=== PATIENT | female | born 1950 | race Caucasian/White ===

== ENCOUNTER 2023-09-20 02:40 | Inpatient (IN) | payer OTHER, SELFPAY ==
[2023-09-19 19:28] VITALS: BP 145/49
[2023-09-19 21:41] VITALS: BMI 38.8
--- NOTE | 2023-09-19 22:22 | ED.GENMED ---
History of Present Illness
General
Chief Complaint: Swelling
Source: patient, records and previous radiology exam
Exam Limitations: none
Time Seen by Provider: 09/19/23 21:39
Nursing documentation reviewed up to this point in time: agreed with
Travel History
Have you had any contact with someone who has COVID-19?: No
Do you have any symptoms of coronavirus? Fever > 100 degrees, chills, cough, shortness of breath, sore throat, loss of taste or smell, muscle aches, or headache?: No
History of Present Illness
History of Present Illness:
72-year-old female history of CAD, restless leg mental health issues neuropathy presents with subacute onset of pain and swelling of her right greater than left leg states she has been compliant with her dietary restrictions, although she was told
her weight is up 10 pounds today, no fevers does feel short of breath, no chest pains, has had ultrasounds of the leg previously, she is not anticoagulated
Past History
Past History
ED Past Medical History: CAD, COPD and HTN
ED Past Surgical History: None, Gynecological, Orthopedic and Other (Thyroid)
Social History
Tobacco: Vaping
Alcohol: None
Drug: None
Personal:
Living: alone
Employment: Retired
Review of Systems
Review of Systems
All Other Systems: Not applicable
Constitutional: Reports weight gain and fatigue; Denies fever
Respiratory: Reports trouble breathing; Denies cough
Cardiac: Reports no symptoms
ABD/GI: Reports no symptoms
: Reports no symptoms
Musculoskeletal: Reports joint pain and muscle stiffness
Neurological: Reports no symptoms
Endocrine: Reports no symptoms
Phy Exam
Physical Exam
Physical Exam:
Physical Exam
General: Chronically ill adult female no acute distress
Neck: No jaundice
Heart: Regular
Lungs: No wheeze
Abdomen: Nontender
Neuro: alert and oriented. no focal neurological deficits
Skin: no rash
Psychiatric: well kept. interactive
Extremities: Right greater than left lower extremity swelling with redness stasis changes mild warm
Scores
Heart Failure Risk
Heart Failure Risk Score: Not Applicable
Course
Orders/Labs/Results
Orders:
Orders
09/19/23 22:17
US Periph Venous LOWER Ext RT Urgent
Comment:
Reason For Exam: swelling
09/19/23 22:30
Complete Blood Count/With Diff Urgent
Comprehensive Metabolic Panel Urgent
NT-proBNP Urgent
Comment: ADD ON
Troponin I Urgent
09/20/23 00:01
CR Chest - 2 Views Urgent
Reason For Exam: sob
09/20/23 01:24
Case Management Consult ONCE
Case Management Consult: Discharge Planning
Furosemide [Lasix] 60 mg IV NOW STA
09/20/23 02:28
Furosemide [Lasix] 40 mg IV NOW STA
09/20/23 06:00
Physical Therapy Consult [Pt Eval And Treat] IN AM
Activity Level: Out of Bed-Early Mobility
Abnormal Lab Results
09/19/23
22:30
RBC 3.54 L 10^6/uL
(4.20-5.40)
Hgb 11.1 L g/dL
(12.0-16.0)
Hct 33.2 L %
(37.0-47.0)
MCH 31.4 H pg
(27.0-31.0)
MPV 10.6 H fL
(7.4-10.4)
Abs Immat Gran (auto) 0.1 H 10^3/uL
(0-0.05)
Immature Gran % 1.0 H %
(0-0.5)
Carbon Dioxide 31 H mmol/L
(22-30)
BUN 18 H mg/dl
(7-17)
Creatinine 1.3 H mg/dL
(0.6-1.0)
AST 37 H U/L
(14-36)
09/19/23 22:30
09/19/23 22:30
Vital Signs
Initial and Last Documented VS:
Initial Vital Signs
Temp Pulse Resp BP Pulse Ox
98.4 F 63 18 145/49 95
09/19/23 19:28 09/19/23 19:28 09/19/23 19:28 09/19/23 19:28 09/19/23 19:28
Last Documented Vital Signs
Temp Pulse Resp BP Pulse Ox
98.4 F 60 18 119/48 99
09/19/23 19:28 09/20/23 02:30 09/20/23 02:15 09/20/23 02:30 09/20/23 02:00
MDM/Problems Addressed
Differential Diagnosis Includes:
Heart failure venous stasis changes, cellulitis DVT neuropathy
MDM/Problems Addressed:
Leg pain shortness of
Chronic conditions affecting care:
Neuropathy heart failure CAD COPD
Chronic conditions affecting care: Psychiatric illness
Acute Exacerbation and/or Progression of Chronic Illness: CAD and Psychiatric illness
*Radiology
Radiology exam reviewed: preliminary read by ED provider
*Pulse Oximetry
Patient hypoxic: no
*EKG
Interpreted by ED Provider?: Yes
Interpretation: abnormal
Comparison EKG: no comparison EKG present
Heart Rate: 78
Rate: normal
Rhythm: ventricular paced
Ischemia: non-specific ST changes
*Algebraist Interpretation
Rate: Algebraist- N/A
*Critical Care Note
Total Time (30-74mins, 75-104mins- exclusive of procedures): Not Applicable
Data Reviewed
Review of Other/Old Records Reveals: Labs, Records and Radiology Studies
Source: patient
Update Note
Update Note:
11:30 PM reviewed operations and maintenance technician negative for DVT
12:35 aM chest x-ray noted no obvious heart failure
1:15 AM patient feeling okay, she is concerned about going home states she cannot walk really get out of bed to feel short of breath
Will give diuretic. Case management PT hospitalist notified
ED Attending Note
-
Portions of this chart may have been created with voice recognition software.� Occasional wrong word or��sound alike� substitutions may have occurred due to the inherent limitations of voice recognition software.
Discharge Plan
Departure
Patient Disposition: Admit
Date of Disposition: 09/20/23
Time of Disposition: 01:35
Admit to: Telemetry
Presentation/result/management discussed w/ accepting MD/DO: Hospitalist
Patient with high blood pressure during this ER visit?: Yes
Condition: Fair
Covid-19: Not Applicable
Discharge Problem:
Obesity (BMI 30-39.9), Hypertensive heart and chronic kidney disease with heart failure and stage 1 through stage 4 chronic kidney disease, or unspecified chronic kidney disease, Arthritis, CHF exacerbation, HTN (hypertension), HLD (hyperlipidemia)
Prescriptions:
No Action
escitalopram oxalate 10 MG tablet
10 mg PO DAILY
magnesium oxide 400 MG tablet
400 mg PO HS
acetaminophen 500 mg Tablet
1,000 mg PO BIDPRN PRN (Reason: MILD PAIN)
gabapentin 100 mg capsule
300 mg PO HS
mirtazapine 7.5 mg tablet
7.5 mg PO HS
aripiprazole 2 mg tablet
2 mg PO HS
midodrine 5 MG tablet
5 mg PO BID
ropinirole 0.5 mg Tablet
0.5 mg PO HS
aspirin 81 mg Tablet,Chewable
81 mg PO DAILY
rosuvastatin [Crestor] 20 mg Tablet
20 mg PO HS
melatonin 1 mg Tablet
14 mg PO HS
solifenacin [Vesicare] 5 mg Tablet
5 mg PO DAILY
turmeric 400 mg Capsule
400 mg PO DAILY
calcium carbonate [Oyster Shell Calcium 500] 500 mg calcium (1,250 mg) Tablet
500 mg PO DAILY Qty: 30 0RF
nicotine 14 mg/24 hr Patch 24 Hour
14 mg transdermal DAILY Qty: 28 0RF
potassium chloride [Klor-Con] 20 mEq Packet
40 meq PO DAILY Qty: 30 0RF
ferrous sulfate [FeroSul] 325 mg (65 mg iron) Tablet
325 mg PO BID Qty: 60 0RF
furosemide 40 MG tablet
80 mg PO DAILY Qty: 30 0RF
Referrals:
Roverto Cruz MD [Family Provider] -
Interventions
Interventions:
*Risk Screen - Suicide Last Done: 09/19/23 19:28
*General Assessment Last Done: 09/19/23 19:28
*Neglect/Abuse Screening Last Done: 09/19/23 19:28
ED- Fall Risk Assessment Last Done: 09/19/23 23:03
*ED COVID-19 Vaccine History Last Done: 09/19/23 21:42
ED- Cardiac Assessment Last Done: 09/19/23 23:02
ED- Pulmonary Assessment Last Done: 09/19/23 23:02
ED-Skin Assessment Last Done: 09/19/23 23:02
Discharge Date and Time
Print Language: TRISTANIAN
[2023-09-19 22:45] LABS: % Basophils 0.6 % (0-2); % Eosinophils 4.6 % (0-6); % Lymphocytes 27.2 % (20.5-51.1); % Neutrophils 58.6 % (42.2-75.2); Absolute Eosinophils 0.3 10^3/uL (0-0.7); Absolute Immature Granulocytes 0.1 10^3/uL (0-0.05); Absolute Lymphocytes 1.9 10^3/uL (1.2-3.4); Absolute Monocytes 0.6 10^3/uL (0.1-0.6); Hematocrit 33.2 % (37.0-47.0); Hemoglobin 11.1 g/dL (12.0-16.0); Mean Corp Hgb Conc. 33.4 g/dL (33.0-37.0); Mean Corpuscular Hgb 31.4 pg (27.0-31.0); Mean Corpuscular Volume 93.8 fL (81.0-99.0); Mean Platelet Volume 10.6 fL (7.4-10.4); Nucleated Red Blood Cells % 0 %; Platelet Count 255 10^3/uL (130-400); Red Blood Cell Count 3.54 10^6/uL (4.20-5.40); Red Cell Dist. Width 13.1 % (11.5-14.5); White Blood Cell Count 6.9 10^3/uL (4.8-10.8)
[2023-09-19 23:06] LABS: NT-proBNP 129 pg/ml; Troponin I < 0.012 ng/ml
[2023-09-19 23:07] LABS: ALT (SGPT) 23 U/L (0-35); AST (SGOT) 37 U/L (14-36); Albumin 4.1 g/dl (3.5-5.0); Alkaline Phosphatase 105 U/L (38-126); Blood Urea Nitrogen 18 mg/dl (7-17); Calcium 9.3 mg/dl (8.4-10.2); Carbon Dioxide 31 mmol/L (22-30); Chloride 99 mmol/L (98-107); Estimated Creatinine Clearance 52 ml/min; Glucose 92 mg/dl (70-99); Potassium 3.5 mmol/L (3.5-5.1); Sodium 136 mmol/L (135-145); Total Bilirubin 0.6 mg/dl (0.2-1.3); Total Protein 6.8 g/dl (6.3-8.2); eGFR 43.69
[2023-09-19 23:37] VITALS: BP 126/45
[2023-09-20] VITALS (16 sets, daily range): BP systolic 98–175; BP diastolic 43–86; BMI 37.0; BMI 35.9
--- NOTE | 2023-09-20 02:24 | HPS.HSE ---
Family Physician
-
Family Physician: Roverto Cruz
Chief Complaint
-
Rt leg pain
History of Present Illness
72F HX chr HFpEF , PPM implant, CAD, CKD3 , Nuropathy restless leg, mental health issues
pw subacute onset of pain and swelling of her right greater than left leg
Weight is up about 9 kg compare to 2022
ROS
+ short of breath
No chest pains
Medical History
Past Medical History
Past Medical History: Reports Other
Additional Past Medical History:
chronic HFpEF
s/p Medtronic DC PPM for syncope and 2nd degree AV block, type I 09/10/21
Orthostasis on chronic midodrine
CAD s/p NSTEMI with peak Troponin 4.9 and s/p 4 mm Xience to prox RCA 02/11/21
History of recovered cardiomyopathy in setting of above
CKD 3
HTN
Hyperlipidemia
ETOH use disorder, recovered, but still drinking 2-3 times a week
Former smoker, 1-2 ppd from age 15 to 65
Medical marijuana
COPD
Depression with anxiety disorder
Neuropathy
Morbid obesity, BMI 39
Arthritis
Past Surgical History: Reports Gynocological and Orthopedic
Social History
Tobacco: Vaping
Alcohol: None
Drug: None
Personal:
Family History
Family History: Not pertinent
Allergies / Home Medications
Allergies reflects when Allergies were last updated in [employer].
Home Medications with original date entered in [employer]
Allergy/Medication List:
Allergies
Allergy/AdvReac Type Severity Reaction Status Date / Time
No Known Allergies Allergy Verified 09/19/23 19:27
Home Medications
escitalopram oxalate 10 mg tablet 10 mg PO DAILY Mental Health/Anxiety 02/10/21
magnesium oxide 400 mg PO HS Supplement 09/07/21
acetaminophen 500 mg tablet 1,000 mg PO BIDPRN PRN MILD PAIN 01/15/22
aripiprazole 2 mg tablet 2 mg PO HS Mental Health/Anxiety 01/15/22
gabapentin 100 mg capsule 300 mg PO HS Neurological Condition 01/15/22
midodrine 5 mg tablet 5 mg PO BID Blood pressure 01/15/22
mirtazapine 7.5 mg tablet 7.5 mg PO HS Depression 01/15/22
aspirin 81 mg chewable tablet 81 mg PO DAILY Blood clot prevention/tx 10/21/22
melatonin 1 mg tablet 14 mg PO HS Sleep 10/21/22
ropinirole 0.5 mg tablet 0.5 mg PO HS RESTLESS LEG 10/21/22
rosuvastatin 20 mg tablet (Crestor) 20 mg PO HS High cholesterol 10/21/22
solifenacin 5 mg tablet (Vesicare) 5 mg PO DAILY Urinary issue 10/21/22
turmeric 400 mg capsule 400 mg PO DAILY Supplement 10/21/22
calcium carbonate (Oyster Shell Calcium 500) 500 mg PO DAILY #30 tabs 10/23/22
ferrous sulfate 325 mg (65 mg iron) tablet (FeroSul) 325 mg PO BID #60 tabs 10/23/22
furosemide 40 mg tablet 80 mg (2 x 40 mg) PO DAILY Fluid retention/Swelling #30 tabs 10/23/22
nicotine 14 mg/24 hr daily transdermal patch 14 mg transdermal DAILY #28 ea 10/23/22
potassium chloride 20 mEq oral packet (Klor-Con) 40 meq PO DAILY #30 ea 10/23/22
Review of Systems
-
Constitutional: Reports No Symptoms
EENT: Reports No Symptoms
Respiratory: Reports No Symptoms
Cardiac: Reports No Symptoms
Abdomen/GI: Reports No Symptoms
: Reports No Symptoms
Musculoskeletal: Reports See HPI
Skin: Reports No Symptoms
Neurological: Reports No Symptoms
Endocrine: Reports No Symptoms
Hematologic/Lymphatic: Reports No Symptoms
Psych: Reports No Symptoms
Physical Exam
Vital Signs
Vital Signs
Temp Pulse Resp BP Pulse Ox
98.4 F 62 18 119/48 99
09/19/23 19:28 09/20/23 02:15 09/20/23 02:15 09/20/23 02:01 09/20/23 02:00
Physical Exam
General: No Apparent Distress
HEENT: NormoCephalic and Anicteric
Respiratory: Clear; No Wheezes, Rales or Rhonchi
Cardiac: S1/S2 and Regular Rhythm
Breast: Deferred by me
GI: Soft, Non Tender, Non Distended and Normal Bowel Sounds
Rectal: Deferred by Provider
Genito-urinary: Deferred by me
Musculoskeletal: No Edema
Skin: Other (Right greater than left lower extremity swelling with redness stasis changes mild warm)
Neuro: AO x 3 and Nonfocal/grossly intact
Psych: Calm
Laboratory Results
-
09/19/23 22:30
09/19/23 22:30
Laboratory Results
Total Bilirubin 0.6 mg/dl (0.2-1.3) 09/19/23 22:30
AST 37 U/L (14-36) H 09/19/23 22:30
ALT 23 U/L (0-35) 09/19/23 22:30
Alkaline Phosphatase 105 U/L (38-126) 09/19/23 22:30
Troponin I < 0.012 ng/ml 09/19/23 22:30
Data Reviewed
-
Ultrasound: Report Reviewed by me
Lab Data: Labs Reviewed by me
Old Records: Reviewed
Impression/Plan
-
Reviewed VS: unremarkable
Wt 106.5 kg ( 10/23/22) ---> 115.6 kg ( 09/19/23) +9 kg
Data
Hgb 11.1
CO2 31 - baseline 33-34
Cr 1.3 - baseline 1.1 - 1.3
e GFR 43
NEG TPNI
pro BNP 129
Rt MADDY US: NEG
CXR my view: PM implant , no CHF
ECHO 08/10/22: EF 63%, mild cLVH, mild MR
Last hospitalist admission: 10/21/22- 10/23/22 DX; Acute on chronic heart failure with preserved ejection fraction
ASSESSMENT & PLAN
Pending Rx reconciliation
Rt Leg cellulitis
-IV ancef
Volume overload: gained 9 kg since october ( Wt 106.5 kg ( 10/23/22) ---> 115.6 kg ( 09/19/23)
HX chr HFpEF
HX intolerance beta blockade with hypotension.
EF also preserved so no indication for ACEI/ARB/SGLT2-I
- Insignificant pBNP, NEG CXR
- hold off IV Diuresis till eval by Card
- DCA card consult
HX CAD s/p NV - No chest pain. Normal troponin. No evidence that acute ischemia is contributing
- cont ASA , statin
Chr Hypotension/orthostasis - Chronic.
S/p PPM and on midodrine
- cont midodrine 5 bid
DVT Px: LMWH
Code: Full code
[2023-09-20] MEDS: LASIX 40 MG IV ×2 (02:30→17:06)
--- NOTE | 2023-09-20 03:11 | EDRN ---
Called pharmacy for [phone] anc
[2023-09-20] MEDS: ANCEF 5 IV ×3 (03:49→21:14)
[2023-09-20 05:51] LABS: Blood Urea Nitrogen 20 mg/dl (7-17); Calcium 9.1 mg/dl (8.4-10.2); Carbon Dioxide 28 mmol/L (22-30); Chloride 100 mmol/L (98-107); Estimated Creatinine Clearance 57 ml/min; Glucose 105 mg/dl (70-99); Potassium 3.5 mmol/L (3.5-5.1); Sodium 137 mmol/L (135-145); eGFR 48.09
--- NOTE | 2023-09-20 07:38 | CON.CAR ---
Addendum entered and electronically signed by Chauncey Sylvester DO 09/20/23 11:39:
I saw and examined the patient.
The Supervisor Laundry's note was reviewed and I agree with the note.
Comment:
Plan:
Continue with IV lasix for now 40 mg BID and then likely transition to oral lasix next 24 hrs.
Cont tx for cellulitis as per primary service. LE u/s neg for DVT
She does not appear to be significantly volume overloaded. ProBNP 129. CXR without evidence of acute heart failure.
Recent echo reviewed: Echo 07/2022 with preserved EF and mild MR.
Trop negative.
BP stable with hx orthostasis and maintained on midodrine 5mg BID.
Continue aspirin and crestor w/ h/o CAD and prior PCI.
Original Note:
Consultation
Consultation Request
Date/Time Consultation Requested: 09/20/2023
Date/Time Consultation Performed: 09/20/2023
Requesting Provider: Dr. Sierra
Performing Provider: Dr. Degroot
Reason for Consultation: ?CHF
Medical History
-
History of Present Illness:
HPI: Bekah is a 72 year old female with PMH of chronic HFpEF, PPM, orthostasis, CAD, recovered CM, CKD, HTN, HLD, COPD, and depression. [facility] for evaluation of worsening LE edema. She states over the past few days she has had
progressively worsening LE edema R>L. This edema has made it hard for her to ambulate and as it continued to worsen, she came to ER for evaluation. Also noted pain and erythema of her legs which has been associated with the edema. She states she is
chronically SOB and attributes this to deconditioning, however has had a light progression in her SOB as well over the past few days. She does not weigh herself on a daily basis, however has noted weight gain over the past year and is now around
245lbs at home. On arrival to ER, she was found to have evidence of cellulitis and was started on abx. LE US was negative for DVT. Given concern for heart failure with weight gain, SOB, and edema, she was given a dose of IV lasix in the ER and noted
good urine output with this. This AM, she is resting comfortably in bed. She has no SOB at rest and is not hypoxic.
PMH:
Chronic HFpEF
s/p Medtronic DC PPM for syncope and 2nd degree AV block, type I 09/10/21
Orthostasis on chronic midodrine
CAD
s/p NSTEMI w/ 4 mm Xience to prox RCA 02/11/21
h/o recovered cardiomyopathy in setting of above
CKD 3
HTN
Hyperlipidemia
ETOH use disorder, recovered
Former smoker, 1-2 ppd from age 15 to 65
Medical marijuana
COPD
Depression with anxiety disorder
Neuropathy
Morbid obesity, BMI 39
Arthritis
Past Medical History
Past Medical History: Other (In HPI)
Past Surgical History: Cardiac (PCI of RCA 01/2021, PPM 08/2021) and Other (b/l TKA, left foot bunionectomy, back surgery)
Social History
Tobacco: Former Smoker (current e-cigarette use)
Alcohol: Occasional
Personal:
Living: Alone
Family History
Family History: Cancer
Allergies / Home Medications
Allergy/AdvReac Type Severity Reaction Status Date / Time
No Known Allergies Allergy Verified 09/19/23 19:27
�Medication �Instructions �Recorded �Confirmed �Type
escitalopram oxalate 10 mg tablet 10 mg PO DAILY Mental 02/10/21 09/20/23 History
Health/Anxiety
magnesium oxide 400 mg PO HS Supplement 09/07/21 09/20/23 History
acetaminophen 500 mg tablet 1,000 mg PO BIDPRN PRN MILD PAIN 01/15/22 09/20/23 History
aripiprazole 2 mg tablet 2 mg PO HS Mental Health/Anxiety 01/15/22 09/20/23 History
midodrine 5 mg tablet 5 mg PO BID Blood pressure 01/15/22 09/20/23 History
mirtazapine 7.5 mg tablet 7.5 mg PO HS Depression 01/15/22 09/20/23 History
aspirin 81 mg chewable tablet 81 mg PO DAILY Blood clot 10/21/22 09/20/23 History
prevention/tx
melatonin 1 mg tablet 14 mg PO HS Sleep 10/21/22 09/20/23 History
ropinirole 0.5 mg tablet 0.5 mg PO HS RESTLESS LEG 10/21/22 09/20/23 History
rosuvastatin 20 mg tablet (Crestor) 20 mg PO HS High cholesterol 10/21/22 09/20/23 History
solifenacin 5 mg tablet (Vesicare) 5 mg PO DAILY Urinary issue 10/21/22 09/20/23 History
turmeric 400 mg capsule 400 mg PO DAILY Supplement 10/21/22 09/20/23 History
calcium carbonate (Oyster Shell 500 mg PO DAILY #30 tabs 10/23/22 09/20/23 Rx
Calcium 500)
nicotine 14 mg/24 hr daily 14 mg transdermal DAILY #28 ea 10/23/22 09/20/23 Rx
transdermal patch
potassium chloride 20 mEq oral 40 meq PO DAILY #30 ea 10/23/22 09/20/23 Rx
packet (Klor-Con)
furosemide 40 mg tablet 40 mg PO BID Fluid 09/20/23 09/20/23 History
retention/Swelling
Review of Systems
-
History Source: Patient
All other systems: Negative unless noted
Physical Exam
Vital Signs
Temp Pulse Resp BP Pulse Ox
98.4 F 60 16 139/63 97
09/19/23 19:28 09/20/23 04:00 09/20/23 04:00 09/20/23 04:00 09/20/23 03:00
Lab Results
09/19/23 22:30
09/20/23 05:30
Troponin I < 0.012 ng/ml 09/19/23 22:30
Gtt-R-Vhzdvljcute Pept 129 pg/ml 09/19/23 22:30
Kss-H-Ehfidqhvtcl Pept Cancelled 09/19/23 22:30
Physical Exam
General: Well Developed, Well Nourished and No Apparent Distress
HEENT: Normocephalic, Anicteric and Moist Mucous Membranes
Respiratory: Clear and Non Labored Respirations
Cardiac: S1/S2 and Regular Rhythm
Musculoskeletal: No Clubbing, No Cyanosis and Edema
Skin: Warm and Dry
Neuro: AO x 3 and Nonfocal/Grossly Intact
Psych: Calm
Impression / Plan
-
PCP: Dr. Cruz
Smoke Tester: Dr. Sylvester
Impression:
Presented with LE edema
Cellulitis
Chronic HFpEF
s/p Medtronic DC PPM for syncope and 2nd degree AV block, type I 09/10/21
Orthostasis on chronic midodrine
CAD
s/p NSTEMI w/ 4 mm Xience to prox RCA 02/11/21
h/o recovered cardiomyopathy in setting of above
CKD 3
HTN
Hyperlipidemia
ETOH use disorder, recovered, but still drinking 2-3 times a week
Former smoker, 1-2 ppd from age 15 to 65
Medical marijuana
COPD
Depression with anxiety disorder
Neuropathy
Morbid obesity, BMI 39
Arthritis
Echo 02/12/21: EF 40-45% with distal septum, lateral, inferior and anterior akinesis, mild MR
Echo 06/24/21: EF 60-65%, mild MR, mild TR
Echo 08/10/22: EF 63%, mild cLVH, mild MR
Plan:
-Presented with LE edema. Found to have cellulitis. Continue abx per primary service. LE US negative for DVT
-Concern for acute heart failure with weight gain, edema, and chronic SOB. s/p IV lasix 40mg x1 in ER.
-Good urine output, would continue IV lasix 40mg BID for now. Likely can transition to PO in the next 24 hours. Does not appear significantly volume overloaded.
-Creat stable at 1.2. Recheck weight this AM. ProBNP 129. CXR without evidence of acute heart failure.
-Echo 07/2022 with preserved EF and mild MR.
-BP stable. h/o orthostasis and maintained on midodrine 5mg BID.
-Troponin negative x 1. No chest pain.
-Continue aspirin and crestor w/ h/o CAD and prior PCI.
-K 3.5. Replete.
HPI: Bekah is a 72 year old female with PMH of chronic HFpEF, PPM, orthostasis, CAD, recovered CM, CKD, HTN, HLD, COPD, and depression. Presented to [facility] for evaluation of worsening LE edema. She states over the past few days she has had
progressively worsening LE edema R>L. This edema has made it hard for her to ambulate and as it continued to worsen, she came to ER for evaluation. Also noted pain and erythema of her legs which has been associated with the edema. She states she is
chronically SOB and attributes this to deconditioning, however has had a light progression in her SOB as well over the past few days. She does not weigh herself on a daily basis, however has noted weight gain over the past year and is now around
245lbs at home. On arrival to ER, she was found to have evidence of cellulitis and was started on abx. LE US was negative for DVT. Given concern for heart failure with weight gain, SOB, and edema, she was given a dose of IV lasix in the ER and noted
good urine output with this. This AM, she is resting comfortably in bed. She has no SOB at rest and is not hypoxic.
Data Reviewed
-
Radiology: Report Reviewed by me
Labs: Labs Reviewed by me
Old Records: Reviewed
[2023-09-20] MEDS: LASIX 80 MG PO (08:28)
[2023-09-20] MEDS: ProAmatine PO ×2 (08:28→08:57)
[2023-09-20] MEDS: LOW STRENGTH ASPIRIN 81 MG PO (08:28)
[2023-09-20] MEDS: KCL 40 MEQ PO (09:18)
[2023-09-20] MEDS: TYLENOL 1000 MG PO (11:37)
--- NOTE | 2023-09-20 12:11 | W.PN.HOSP.TC ---
Addendum entered and electronically signed by Christophe Cook MD 09/20/23 20:48:
Attending Addendum-
I saw and evaluated the patient. I reviewed the resident�s note and agree with findings and plan as documented in the resident�s note. Patient feels improved, less swelling in lower extremities. denies SOB/CP/fevers/chills Full 12 point ROS reviewed
and negative except as documented Exam: GEN NAD heart SM @ RUSB lungs clear abd soft LE- RLE red warm 12+ pitting edema LLE 1+ pitting edema Plan:
# RLE Cellulitis- cont ancef, check labs in am
# AE HFpEF- cards on board, cont IV lasix dry weight @ 144 per patient, fluid restrict strict I and O cont to monitor repeat BMP in am
# EToH Abuse- start MSAS protocol, monitor closely start folic acid thiamine and MVI
# Orthostatic Hypotension- cont meds
# HTN- cont meds
# Tob abuse- uses vapes- start maria isabel patch
# Mood D/O- restart meds
# Peripheral Neuropathy- cont meds
Time spent coordinating care, review of plan of care with resident, review of records, med rec, consults, notes, labs, rads, d/w nursing � 50 mins
Original Note:
Today's Communication/Plan
-
IV Lasix
IV antibiotics
Daily weights, fluid restrict, I/O
Assessment / Plan
Assessment / Plan
Assessment and plan
Right lower leg cellulitis
Continue IV cefazolin
CBC in a.m.
Monitor WBC and temperature curve
Heart failure with preserved ejection fraction
Echo 08/10/22: EF 63%, mild cLVH, mild MR
On IV Lasix twice daily, cardiology following. Likely to transition to PO in next 24 hours.
Creatinine 1.2 improving.
Daily weight
Fluid restrict
Monitor input and output
BMP in a.m.
Current tobacco user
Started on nicotine patch 21 mg
History of alcohol use disorder, continues to consume alcohol
On MSAS protocol
Orthostatic hypotension
Hold midodrine for now
Monitor blood pressure
DVT prophylaxis-Lovenox
Anticipated Discharge: 24 - 48 hours
Subjective/Interval History
-
Date of Service: September 20, 2023
72-year-old female history of CAD, pacemaker placement in 2021 , CKD , hfpEF hypertension , hyperlipidemia , chronic hypertension on midodrine, alcohol use disorder, recovered but still drinks socially, restless leg, mental health issues,
neuropathy presents with subacute onset of pain and swelling of her right greater than left leg states. Patient states that her swelling has been going on for the past 3 weeks and has progressed. The erythema has progressed in the past week.
Patient states that her weight at home was 144 last week. In the ED she weighed 154 pounds. Patient also reports that she has been experiencing shortness of breath on exertion, due to which she was having difficulties ambulating at home. She does
not use a walker at home, but she uses it while outside.
Objective Data
-
Labs:
Laboratory Results
09/20/23
05:30
Sodium 137
Potassium 3.5
Chloride 100
Carbon Dioxide 28
BUN 20 H
Creatinine 1.2 H
Glucose 105 H
Calcium 9.1
Vital Signs:
Vital Signs
Temp Pulse Resp BP Pulse Ox
98.4 F 60 16 167/56 97
09/19/23 19:28 09/20/23 11:46 09/20/23 11:46 09/20/23 11:46 09/20/23 03:00
Review of Systems
-
History Source: Patient
All other systems: Reviewed and negative (Except mentioned)
Respiratory: Reports Trouble Breathing
Musculoskeletal: Reports Edema (Redness, tenderness in the right lower extremity > LLE)
Physical Exam
-
General: Obese
HEENT: Normocephalic and Atraumatic
Respiratory: Crackles (Right lower base) and Decreased Breath Sounds (Right lower base)
GI: Soft, Nontender and Nondistended
Musculoskeletal: Edema, Right Lower Extrem (2+)
Skin: Warm (Erythematous, warm and tender to touch in two third of right lower extremity> LLE)
Data Reviewed
-
Labs: Labs Reviewed by me and Discussed with Physician
[2023-09-20] MEDS: NICODERM TRANSDERMAL 21 MG TRANSDERM (12:22)
[2023-09-20] MEDS: LOVENOX 40 MG SC (17:06)
[2023-09-20] MEDS: MELATONIN 10 MG PO (21:12)
[2023-09-20] MEDS: ABILIFY 2 MG PO (21:13)
[2023-09-20] MEDS: REQUIP 3 MG PO (21:13)
[2023-09-20] MEDS: CRESTOR 20 MG PO (21:13)
[2023-09-20] MEDS: ProAmatine 5 MG PO (21:13)
[2023-09-20] MEDS: NEURONTIN 300 MG PO (21:14)
[2023-09-20] MEDS: FLUSH (NSS) 1 FLUSH IV (21:14)
[2023-09-21 03:29] VITALS: BP 141/66
[2023-09-21] MEDS: ANCEF 5 IV (04:25)
[2023-09-21 06:07] LABS: % Basophils 0.3 % (0-2); % Eosinophils 4.5 % (0-6); % Immature Granulocytes 0.5 % (0-0.5); % Lymphocytes 21.7 % (20.5-51.1); Absolute Eosinophils 0.3 10^3/uL (0-0.7); Absolute Lymphocytes 1.4 10^3/uL (1.2-3.4); Absolute Monocytes 0.5 10^3/uL (0.1-0.6); Absolute Neutrophils 4.1 10^3/uL (1.4-6.5); Hematocrit 35.3 % (37.0-47.0); Hemoglobin 11.2 g/dL (12.0-16.0); Mean Corp Hgb Conc. 31.7 g/dL (33.0-37.0); Mean Corpuscular Hgb 30.9 pg (27.0-31.0); Mean Corpuscular Volume 97.2 fL (81.0-99.0); Mean Platelet Volume 10.9 fL (7.4-10.4); Nucleated Red Blood Cells % 0 %; Platelet Count 236 10^3/uL (130-400); Red Blood Cell Count 3.63 10^6/uL (4.20-5.40); Red Cell Dist. Width 13.2 % (11.5-14.5); White Blood Cell Count 6.2 10^3/uL (4.8-10.8)
[2023-09-21 06:33] LABS: Blood Urea Nitrogen 20 mg/dl (7-17); Calcium 9.2 mg/dl (8.4-10.2); Carbon Dioxide 30 mmol/L (22-30); Chloride 100 mmol/L (98-107); Estimated Creatinine Clearance 56 ml/min; Glucose 97 mg/dl (70-99); Potassium 4.2 mmol/L (3.5-5.1); Sodium 135 mmol/L (135-145); eGFR 48.09
[2023-09-21 08:09] VITALS: BP 155/64
[2023-09-21] MEDS: LASIX 40 MG IV (09:29)
[2023-09-21] MEDS: LOW STRENGTH ASPIRIN 81 MG PO (09:29)
[2023-09-21] MEDS: ProAmatine PO (09:30)
[2023-09-21] MEDS: NICODERM TRANSDERMAL 21 MG TRANSDERM (09:30)
--- NOTE | 2023-09-21 09:34 | W.PN.HOSP.TC ---
Addendum entered and electronically signed by Leon Matthew MD 09/21/23 14:46:
Patient seen and examined
Discussed with resident
Impression/plan:
Acute CHF preserved EF with mild volume overload.
Recent echocardiogram noted.
Stable respiratory status.
Weight close to baseline at 110 pounds.
Transition back to oral Lasix regimen.
Follow-up with cardiology
Right lower extremity cellulitis with chronic venous stasis dermatitis
Improved with antibiotics and reduction edema with diuresis
Transition to cephalexin to complete additional 5-day course of therapy
Disposition: Discharged home to follow-up with cardiology.
Instructed to take additional 40 mg of Lasix in a.m. in case of weight gain over 2-3 pounds over the 48 to 72 hours.
Original Note:
Today's Communication/Plan
-
Discharging today on oral Lasix and antibiotics
Assessment / Plan
Assessment / Plan
Assessment and plan
Right lower leg cellulitis
Discharge today
Switching to cephalexin PO 500 mg twice daily for 5 days
Follow-up with PCP outpatient
Acute heart failure with preserved ejection fraction
Echo 08/10/22: EF 63%, mild cLVH, mild MR
Switching to Lasix 40 mg PO twice a day. Recommended patient that if she sees her weight rising 2 to 3 pounds then take 80 mg Lasix in the a.m. and 40 mg at night
Creatinine 1.2 improving.
Follow-up with cardiology outpatient
Current tobacco user, uses vape
Counseled on tobacco use
History of alcohol use disorder, continues to consume alcohol
Patient declines MSAS protocol
Orthostatic hypotension
Resume midodrine
Monitor blood pressure
Mood disorder
Restart home medication
Peripheral neuropathy
Continue gabapentin
DVT prophylaxis-Lovenox
Anticipated Discharge: Today
Subjective/Interval History
-
Date of Service: September 21, 2023
Improved pain, and swelling
Objective Data
-
Labs:
Laboratory Results
09/21/23
05:13
WBC 6.2
Hgb 11.2 L
Hct 35.3 L
Plt Count 236
Sodium 135
Potassium 4.2
Chloride 100
Carbon Dioxide 30
BUN 20 H
Creatinine 1.2 H
Glucose 97
Calcium 9.2
Vital Signs:
Vital Signs
Temp Pulse Resp BP Pulse Ox
98 F 61 18 155/64 95
09/21/23 08:09 09/21/23 08:09 09/21/23 08:09 09/21/23 08:09 09/21/23 08:09
I&O
09/20/23 09/21/23 09/22/23
06:59 06:59 06:59
Intake Total 240 / 240
Balance 240 / 240
Review of Systems
-
History Source: Patient
All other systems: Reviewed and negative
Physical Exam
-
General: Well Developed
HEENT: Normocephalic and Atraumatic
Respiratory: Clear to Auscultation
Cardiac: Regular Rhythm and S1/S2
Musculoskeletal: Edema, Right Lower Extrem (Improved)
Skin: Dry and Other (Less warm, nontender to touch, erythema improving)
Data Reviewed
-
Labs: Labs Reviewed by me and Discussed with Physician
--- NOTE | 2023-09-21 09:38 | W.PN.CARDCBS ---
Today's Communication / Plan
-
Resume oral lasix as her wt is back to her dry wt. Continue lasix 40 mg PO BID starting 09/21.
She does not appear to have been significantly volume overloaded. ProBNP was 129. CXR was without evidence of acute heart failure.
Cr stable.
Recent echo reviewed: Echo 07/2022 with preserved EF and mild MR.
Trop negative.
BP stable with hx orthostasis and maintained on midodrine 5mg BID. Cont tx for cellulitis as per primary service. LE u/s neg for DVT
Continue aspirin and crestor w/ h/o CAD and prior PCI.
She denies significantly alcohol use and declines MSAS protocol
Discussed with nursing.
Please recall if needed.
Impression / Plan
-
PCP: Dr. Cruz
[facility]: Dr. Sylvester
Impression:
Presented with LE edema
Cellulitis
Chronic HFpEF
s/p [employer] DC PPM for syncope and 2nd degree AV block, type I 09/10/21
Orthostasis on chronic midodrine
CAD
s/p NSTEMI w/ 4 mm Xience to prox RCA 02/11/21
h/o recovered cardiomyopathy in setting of above
CKD 3
HTN
Hyperlipidemia
ETOH use disorder, recovered, but still drinking 2-3 times a week
Former smoker, 1-2 ppd from age 15 to 65
Medical marijuana
COPD
Depression with anxiety disorder
Neuropathy
Morbid obesity, BMI 39
Arthritis
Echo 02/12/21: EF 40-45% with distal septum, lateral, inferior and anterior akinesis, mild MR
Echo 06/24/21: EF 60-65%, mild MR, mild TR
Echo 08/10/22: EF 63%, mild cLVH, mild MR
Plan:
Resume oral lasix as her wt is back to her dry wt. Continue lasix 40 mg PO BID starting 09/21.
She does not appear to have been significantly volume overloaded. ProBNP was 129. CXR was without evidence of acute heart failure.
Cr stable.
Recent echo reviewed: Echo 07/2022 with preserved EF and mild MR.
Trop negative.
BP stable with hx orthostasis and maintained on midodrine 5mg BID. Cont tx for cellulitis as per primary service. LE u/s neg for DVT
Continue aspirin and crestor w/ h/o CAD and prior PCI.
She denies significantly alcohol use and declines MSAS protocol
Discussed with nursing.
Please recall if needed.
HPI: Bekah is a 72 year old female with PMH of chronic HFpEF, PPM, orthostasis, CAD, recovered CM, CKD, HTN, HLD, COPD, and depression. Presented to [facility] for evaluation of worsening LE edema. She states over the past few days she has had
progressively worsening LE edema R>L. This edema has made it hard for her to ambulate and as it continued to worsen, she came to ER for evaluation. Also noted pain and erythema of her legs which has been associated with the edema. She states she is
chronically SOB and attributes this to deconditioning, however has had a light progression in her SOB as well over the past few days. She does not weigh herself on a daily basis, however has noted weight gain over the past year and is now around
245lbs at home. On arrival to ER, she was found to have evidence of cellulitis and was started on abx. LE US was negative for DVT. Given concern for heart failure with weight gain, SOB, and edema, she was given a dose of IV lasix in the ER and noted
good urine output with this. This AM, she is resting comfortably in bed. She has no SOB at rest and is not hypoxic.
Progress Note - [facility]
Subjective
Date of Service: September 21, 2023
Pt seen and examined. No cp or dyspnea.
Objective
Labs:
09/21/23 05:13
09/21/23 05:13
Labs
Hgb 11.2 g/dL (12.0-16.0) L 09/21/23 05:13
Hct 35.3 % (37.0-47.0) L 09/21/23 05:13
Plt Count 236 10^3/uL (130-400) 09/21/23 05:13
Sodium 135 mmol/L (135-145) 09/21/23 05:13
Potassium 4.2 mmol/L (3.5-5.1) 09/21/23 05:13
BUN 20 mg/dl (7-17) H 09/21/23 05:13
Creatinine 1.2 mg/dL (0.6-1.0) H 09/21/23 05:13
Glucose 97 mg/dl (70-99) 09/21/23 05:13
Troponins
09/19/23
22:30
Troponin I < 0.012
Vital Signs and I&O:
Vital Signs
Temp Pulse Resp BP Pulse Ox
98 F 61 18 155/64 95
09/21/23 08:09 09/21/23 08:09 09/21/23 08:09 09/21/23 08:09 09/21/23 08:09
Vital Signs
Temp Pulse Resp BP Pulse Ox
98 F 61 18 155/64 95
09/21/23 08:09 09/21/23 08:09 09/21/23 08:09 09/21/23 08:09 09/21/23 08:09
Intake & Output
09/19/23 09/20/23 09/21/23 09/22/23
06:59 06:59 06:59 06:59
Intake Total 240 / 240
Balance 240 / 240
Physical Exam
Physical Exam
General: No acute distress, AAOX3
Neck: Negative JVD
Heart: Regular, Negative S3 positive S1/S2, Negative S4, No murmur
Lungs: CTA b/l, negative wheezes/rales/rhonchi
Abd: Positive BS, NT/ND, neg rebound/rigidity/guarding
Ext: Negative cyanosis/clubbing.
Skin: venous stasis skin changes
Neuro: nonfocal
[2023-09-21 11:48] VITALS: BP 156/79
--- NOTE | 2023-09-21 12:45 | W.DCSUMMARY ---
Documented by User: Lily Jain MD, Resident 09/21/23 12:57
Discharge Summary
Discharge Data
Date of Admission: 09/20/23
Date of Discharge: 09/21/23
-
Pending Results: No
Hospital Course
Discharge diagnosis
Right leg cellulitis
Acute HFpEF
Tobacco user
Orthostatic hypotension
Mood disorder
Peripheral neuropathy
History of alcohol use disorder
Hospital course
72-year-old female presented to the ED complaining of shortness of breath, progressive swelling, redness, pain in her right lower extremity> LLE. In the ED BP 145/49, afebrile, hemodynamically stable. Patient was started on IV cefazolin for right
leg cellulitis. On physical examination right leg edema 2+, erythematous starting from the ankle up to two thirds of the lower extremity, tender and warm to touch. Patient denied fever. As patient was unable to ambulate at home due to progressive
swelling in the right leg for the past 3 weeks and increased shortness of breath on exertion she denied dyspnea at rest. General gain 10 pounds in the past week. In the ED weight was around 115kg. Patient's dry weight is around 65kg. IV Lasix
twice daily was started for volume overload. The next day patient's creatinine was 1.2, shortness of breath has improved. The swelling in her right leg has improved, no pain, less tender to touch, less warm. On the day of discharge today, which
patient will be going home with oral antibiotics and oral Lasix. Vitals today are stable.
Right leg cellulitis
Start cephalexin 500 mg twice daily for 5 days
Acute HFpef
Follow-up with cardiology, Dr. Sylvester.
Continue oral furosemide 40 mg twice daily. Explained to patient that if she notices increase in weight up to 2 to 3 pounds then she can up her dose by 80 mg in the a.m. and 40 mg at night.
Tobacco user
Counseled about vaping
Orthostatic hypotension
Resume on midodrine
Mood disorder
Resume on home meds
Peripheral neuropathy
Resume on gabapentin
History of alcohol use disorder
Drinks only socially.
Discharge Plan
-
Patient Disposition: Home (Routine Discharge)
Discharge Diagnosis/Procedures: Right leg cellulitis
Acute HfpEF with volume overload
Orthostatic hypotension
Tobacco user
Mood disorder
Peripheral neuropathy
History of alcohol use disorder
Condition: Good
Diet: Low Sodium
Activity: With Walker
Bathing Restrictions: None
Instructions: *[facility] Heart Failure Instructions
Referrals:
Adeline Lazo PA-C [Specified Professional Personl] - 10/01/23 10:40 am (You have a cardiology follow-up appointment at the [place] office with Dr. Sylvester's physician case assistant, Adeline. Please call with questions)
Roverto Cruz MD [Family Provider] -
Additional Discharge Medication Instructions: Switching to Lasix 40 mg PO twice a day. Recommended patient that if she sees her weight rising 2 to 3 pounds then take 80 mg Lasix in the a.m. and 40 mg at night
Cephalexin 500 mg twice daily for 5 days
Prescriptions:
New
cephalexin 500 mg capsule
500 mg PO BID 5 Days Qty: 10 0RF
Continued
magnesium oxide 400 MG tablet
400 mg PO HS
acetaminophen 500 mg Tablet
1,000 mg PO BID
mirtazapine 7.5 mg tablet
7.5 mg PO HS
midodrine 5 MG tablet
5 mg PO BID
solifenacin [Vesicare] 5 mg Tablet
5 mg PO DAILY
turmeric 400 mg Capsule
400 mg PO DAILY
ropinirole 3 mg Tablet
3 mg PO HS
rosuvastatin 20 mg Tablet
20 mg PO HS
melatonin 10 mg Tablet
10 mg PO HS
potassium gluconate
99 mg PO DAILY
aspirin 81 mg Tablet,Delayed Release (Dr/Ec)
81 mg PO DAILY Qty: 30 0RF
escitalopram oxalate 10 MG tablet
10 mg PO DAILY Qty: 30 0RF
aripiprazole 2 mg tablet
2 mg PO HS Qty: 30 0RF
Changed
furosemide 40 MG tablet
40 mg PO BID Qty: 30 0RF
Discharge Orders:
Discharge Patient (As Directed); Ordered 09/21/23
Ordered By: Lily Jain
Discharge Date and Time
Print Language: IRANIAN

Documented by User: Leon Matthew MD 09/21/23 14:43
Discharge Summary
Discharge Data
Date of Admission: 09/20/23
Date of Discharge: 09/21/23
Discharge Plan
-
Patient Disposition: Home (Routine Discharge)
Discharge Diagnosis/Procedures: Right leg cellulitis
Acute HfpEF with volume overload
Orthostatic hypotension
Tobacco user
Mood disorder
Peripheral neuropathy
History of alcohol use disorder
Condition: Good
Diet: Low Sodium
Activity: With Walker
Bathing Restrictions: None
Instructions: *[facility] Heart Failure Instructions
Referrals:
Adeline Lazo PA-C [Specified Professional Personl] - 10/01/23 10:40 am (You have a cardiology follow-up appointment at the [place] office with Dr. Sylvester's physician case assistant, Adeline. Please call with questions)
Roverto Cruz MD [Family Provider] -
Additional Discharge Medication Instructions: Switching to Lasix 40 mg PO twice a day. Recommended patient that if she sees her weight rising 2 to 3 pounds then take 80 mg Lasix in the a.m. and 40 mg at night
Cephalexin 500 mg twice daily for 5 days
Prescriptions:
New
cephalexin 500 mg capsule
500 mg PO BID 5 Days Qty: 10 0RF
Continued
magnesium oxide 400 MG tablet
400 mg PO HS
acetaminophen 500 mg Tablet
1,000 mg PO BID
mirtazapine 7.5 mg tablet
7.5 mg PO HS
midodrine 5 MG tablet
5 mg PO BID
solifenacin [Vesicare] 5 mg Tablet
5 mg PO DAILY
turmeric 400 mg Capsule
400 mg PO DAILY
ropinirole 3 mg Tablet
3 mg PO HS
rosuvastatin 20 mg Tablet
20 mg PO HS
melatonin 10 mg Tablet
10 mg PO HS
potassium gluconate
99 mg PO DAILY
aspirin 81 mg Tablet,Delayed Release (Dr/Ec)
81 mg PO DAILY Qty: 30 0RF
escitalopram oxalate 10 MG tablet
10 mg PO DAILY Qty: 30 0RF
aripiprazole 2 mg tablet
2 mg PO HS Qty: 30 0RF
Changed
furosemide 40 MG tablet
40 mg PO BID Qty: 30 0RF
Discharge Orders:
Discharge Patient (As Directed); Ordered 09/21/23
Ordered By: Lily Jain
Discharge Date and Time
Print Language: IRANIAN
--- NOTE | 2023-09-21 13:02 | VNURNOTE ---
Home Health Liaison met with patient at 1130 to discuss [facility] nurse/therapy, visits, schedule and homebound status. Patient is agreeable and understands that visits at home will be 2-3 x per week to assess and teach medical management. Patient has a
scale but does not consistently log a daily weight.
[facility] brochure provided with contact information. Patient is aware that [facility] will contact her for start of care in 1-2 days after discharge from .
[facility] referral completed in [facility].
[2023-09-21] MEDS: ANCEF IV (13:03)
--- NOTE | 2023-09-21 16:43 | CM ---
[place] entered order for discharge.
Spoke with patient she said she was ready for dc today.
She said that her friend Savannah will drive her home.
[facility] set up by Fawn lima .
PLAN Home with [facility]
== END 2023-09-21 15:28 | disposition home health service (06) | DRG 602 ==
LOC: 4 EAST ACU 02:40
PROVIDERS: Emergency Medicine; Student in an Organized Health Care Education/Training Program; ADMITTING PHYSICIAN Internal Medicine; ATTENDING PHYSICIAN Internal Medicine; EMERGENCY PHYSICIAN Emergency Medicine; FAMILY PHYSICIAN Internal Medicine; OTHER PHYSICIAN Internal Medicine Cardiovascular Disease
DX: L03.115 Cellulitis of right lower limb (principal); I50.33 Acute on chronic diastolic (congestive) heart failure; I13.0 Hypertensive heart and chronic kidney disease with heart failure and stage 1 through stage 4 chronic kidney disease, or unspecified chronic kidney disease; N18.30 Chronic kidney disease, stage 3 unspecified; M19.90 Unspecified osteoarthritis, unspecified site; E78.00 Pure hypercholesterolemia, unspecified; E66.01 Morbid (severe) obesity due to excess calories; Z68.35 Body mass index [BMI] 35.0-35.9, adult; I95.1 Orthostatic hypotension; Z98.61 Coronary angioplasty status; Z72.0 Tobacco use; G62.9 Polyneuropathy, unspecified
CPT/HCPCS: 71046; 80048; 80053; 83880; 84484; 85025; 93971; 97163; 99285

== ENCOUNTER 2024-01-28 10:09 | Emergency (ER) | payer OTHER, SELFPAY ==
[2024-01-28 10:12] VITALS: BP 150/70
--- NOTE | 2024-01-28 10:25 | ED.MUSCINJ ---
HPI-Injury
General
Chief Complaint: Soft Tissue Injury
Source: patient
Exam Limitations: none
Time Seen by Provider: 01/28/24 10:17
Nursing documentation reviewed up to this point in time: agreed with
History of Present Illness-Injury
Initial Injury comments:
73 y/o F with h/o CHF, pacer, copd
here with ring stuck on L ring finger for 1 week
says she has lost weight so she tried a smaler ring on her finger and couldn't get it off despite several attempts with creams and oils at home
her finger is slightly pink and swollen around the ring
she has chronic neuoatphy but can still feel the finger
no bleeding no new numbness;
ttanus UTD
Past History
Past History
ED Past Medical History: CAD, COPD and HTN
ED Past Surgical History: None, Gynecological, Orthopedic and Other (Thyroid)
Social History
Tobacco: Vaping
Alcohol: None
Drug: None
Personal:
Living: alone
Employment: Retired
Review of Systems
Review of Systems
Allergies reviewed?: Yes
All Other Systems: Not applicable
Phy Exam
Physical Exam
Physical Exam:
GENERAL: Alert , in no apparent distress, comfortable at rest
HEAD: NCAT
CV: cap refill intact
NEUROLOGICAL: Alert and oriented, no focal neuro deficits, , 5/5 strength, sensation intact, ambulation slight limp right leg
SKIN: Warm and dry, very ninimally pink edematous skin around the ring at the base of the L 4th finger
MUSCULOSKELETAL: mild edema of the oft tissue around the compressive ring; no distal symptoms
full rom
PSYCH: Normal and appropriate interaction.
MDM/Problems Addressed
Differential Diagnosis Includes:
RING FINGER TOURNIQUET
MDM/Problems Addressed:
73 y/o F with ring stuck on finger x 1 week L ring finger
has some localiezed sweling
normal dblood flow distally
uncomfortable during removal but was successfully able to remove the ring by using the ring cutter and forceps to open the ring up
small superficial abrasion post removal
soaked in cool water
tetanus UTD
appreciate bp elevation, likely in the setting of pain and anxiety
d/c home
*Critical Care Note
Total Time (30-74mins, 75-104mins- exclusive of procedures): Not Applicable
ED Attending Note
-
Portions of this chart may have been created with voice recognition software.� Occasional wrong word or��sound alike� substitutions may have occurred due to the inherent limitations of voice recognition software.
Discharge Plan
Departure
Patient Disposition: Home (Routine Discharge)
Date of Disposition: 01/28/24
Time of Disposition: 10:46
Patient with high blood pressure during this ER visit?: Yes
Covid-19: Not Applicable
Discharge Problem:
Tight ring on finger
Instructions: Swollen Joints (DC)
Prescriptions:
No Action
magnesium oxide 400 MG tablet
400 mg PO HS
acetaminophen 500 mg Tablet
1,000 mg PO BID
mirtazapine 7.5 mg tablet
7.5 mg PO HS
midodrine 5 MG tablet
5 mg PO BID
solifenacin [Vesicare] 5 mg Tablet
5 mg PO DAILY
turmeric 400 mg Capsule
400 mg PO DAILY
ropinirole 3 mg Tablet
3 mg PO HS
rosuvastatin 20 mg Tablet
20 mg PO HS
melatonin 10 mg Tablet
10 mg PO HS
potassium gluconate
99 mg PO DAILY
cephalexin 500 mg capsule
500 mg PO BID 5 Days Qty: 10 0RF
furosemide 40 MG tablet
40 mg PO BID Qty: 30 0RF
aspirin 81 mg Tablet,Delayed Release (Dr/Ec)
81 mg PO DAILY Qty: 30 0RF
escitalopram oxalate 10 MG tablet
10 mg PO DAILY Qty: 30 0RF
aripiprazole 2 mg tablet
2 mg PO HS Qty: 30 0RF
Activity Restrictions/Additional Instructions:
COOL WATER SOAKS OR ICE OFF AND ON TODAY FOR 5 MINUTES AT A TIME TO HELP WITH SWELLING
APPLY NEOSPORIN TO THE [facility]
WATCH FOR SIGNS OF INFECTION
RETURN NEEDED
Interventions
Interventions:
*Risk Screen - Suicide Last Done: 01/28/24 10:12
*General Assessment Last Done: 01/28/24 10:12
*Neglect/Abuse Screening Last Done: 01/28/24 10:12
*ED COVID-19 Vaccine History Last Done: 01/28/24 10:20
ED-Musculoskeletal Assessment Last Done: 01/28/24 10:20
ED-Skin Assessment Last Done: 01/28/24 10:20
Discharge Date and Time
Print Language: POLISH
== END 2024-01-28 10:51 | disposition home or self-care (01) ==
LOC: EMR 10:09
PROVIDERS: EMERGENCY PHYSICIAN Emergency Medicine; FAMILY PHYSICIAN Internal Medicine
DX: S60.945A Unspecified superficial injury of left ring finger, initial encounter (principal); W49.04XA Ring or other jewelry causing external constriction, initial encounter; I25.10 Atherosclerotic heart disease of native coronary artery without angina pectoris; J44.9 Chronic obstructive pulmonary disease, unspecified; I11.0 Hypertensive heart disease with heart failure; I50.9 Heart failure, unspecified; F17.290 Nicotine dependence, other tobacco product, uncomplicated
CPT/HCPCS: 99282

== ENCOUNTER 2024-06-27 08:47 | Inpatient (IN) | payer OTHER, SELFPAY ==
[2024-06-27] VITALS (14 sets, daily range): BP systolic 88–148; BP diastolic 37–66; BMI 35.9; BMI 34.7
[2024-06-27] MEDS: TYLENOL 1000 MG PO (04:03)
[2024-06-27 04:13] LABS: % Basophils 0.2 % (0-2); % Eosinophils 0.5 % (0-6); % Immature Granulocytes 0.5 % (0-0.5); % Lymphocytes 4.4 % (20.5-51.1); % Monocytes 6.8 % (1.7-9.3); % Neutrophils 87.6 % (42.2-75.2); Absolute Lymphocytes 0.3 10^3/uL (1.2-3.4); Absolute Monocytes 0.4 10^3/uL (0.1-0.6); Absolute Neutrophils 5.5 10^3/uL (1.4-6.5); Hematocrit 37.1 % (37.0-47.0); Hemoglobin 11.9 g/dL (12.0-16.0); Mean Corp Hgb Conc. 32.1 g/dL (33.0-37.0); Mean Corpuscular Hgb 31.3 pg (27.0-31.0); Mean Corpuscular Volume 97.6 fL (81.0-99.0); Mean Platelet Volume 10.6 fL (7.4-10.4); Nucleated Red Blood Cells % 0 %; Platelet Count 185 10^3/uL (130-400); Red Cell Dist. Width 13.7 % (11.5-14.5); White Blood Cell Count 6.3 10^3/uL (4.8-10.8)
[2024-06-27 04:25] LABS: Lactic Acid 1.6 mmol/L (0.7-2.0)
[2024-06-27 04:29] LABS: ALT (SGPT) 383 U/L (0-35); Albumin 4.5 g/dl (3.5-5.0); Alkaline Phosphatase 204 U/L (38-126); Blood Urea Nitrogen 25 mg/dl (7-17); COVID-19 Antigen Negative (Negative); Calcium 9.2 mg/dl (8.4-10.2); Carbon Dioxide 34 mmol/L (22-30); Chloride 96 mmol/L (98-107); Estimated Creatinine Clearance 53 ml/min; Glucose 144 mg/dl (70-99); Potassium 4.4 mmol/L (3.5-5.1); Sodium 139 mmol/L (135-145); Total Bilirubin 2.6 mg/dl (0.2-1.3); Total Protein 7.3 g/dl (6.3-8.2)
[2024-06-27 04:35] LABS: NT-proBNP 541 pg/ml; Troponin I 0.022 ng/ml
--- NOTE | 2024-06-27 05:30 | ED.GENMED ---
History of Present Illness
<Indira Brooks DO - Last Filed: 06/27/24 05:36>
General
Chief Complaint: Chest Pain
Time Seen by Provider: 06/27/24 04:13
History of Present Illness
History of Present Illness:
73-year-old female with history of CAD status post stenting x 2, hypertension, hyperlipidemia, COPD, CHF, pacemaker presenting to the emergency department with chest pain. Patient reports yesterday around 2 PM she started to have left-sided chest
pain. Around 1 AM, felt the pain got worse and had an episode of vomiting which prompted her to come to the hospital. Does note the past few days with fever. She denies cough. She denies abdominal pain. She denies any diarrhea. She denies any
known sick contacts. Patient received aspirin and nitroglycerin in route, with some improvement of her symptoms. Denies any difficulty breathing. The pain is described as a pressure. Denies additional acute medical complaints.
Past History
<Indira Brooks DO - Last Filed: 06/27/24 05:36>
Past History
ED Past Medical History: CAD, COPD and HTN
ED Past Surgical History: None, Gynecological, Orthopedic and Other (Thyroid)
Social History
Tobacco: Vaping
Alcohol: None
Drug: None
Personal:
Living: alone
Employment: Retired
Phy Exam
<Indira Brooks DO - Last Filed: 06/27/24 05:36>
Physical Exam
Physical Exam:
General: Well-appearing, no clinical signs of dehydration, nontoxic and in no acute distress
HEENT: protecting airway
Neck: appears supple
CV: Normal heart rate, regular rhythm
Resp: No accessory muscle use, no increased work of breathing, lungs clear to auscultation bilaterally
Abd: Soft and non-distended, mild tenderness to the right upper quadrant without rebound or guarding
Extremities: No deformities, chronic swelling to lower extremities, symmetric
Neuro: alert, no focal neurologic deficit
: deferred
Rectal: deferred
Psych: Normal affect
Skin: Intact
Scores
<Codi Barbosa MD - Last Filed: 06/27/24 07:52>
Heart Score for Chest Pain Patients
STEMI patient?: Not applicable
Course
<Indira Brooks DO - Last Filed: 06/27/24 05:36>
Orders/Labs/Results
Orders:
Orders
06/27/24 03:44
Electrocardiogram (*1) Urgent
Reason for Study: Chest Pain
Cardiac Monitoring- Treatment ONCE
EKG- Treatment ONCE
06/27/24 03:54
Chest [CR Chest - 2 Views ] Urgent
Comment:
Reason For Exam: sob
06/27/24 03:57
CMP [Comprehensive Metabolic Panel] Urgent
COVID-19 Antigen Urgent
Source: Nasal Swab
Complete Blood Count/With Diff Urgent
Lactic Acid Urgent
Lipase Urgent
Comment: ADD ON
NT-proBNP Urgent
Troponin I Urgent
Blood Culture Urgent
DAVID Source: Blood/Venous
Specimen Description:
Influenza A+B Rapid Molecular Urgent
DAVID Source: Nasal Swab
Specimen Description:
06/27/24 04:01
Acetaminophen [Tylenol] 1,000 mg .ROUTE .STK-MED ONE
06/27/24 04:03
Acetaminophen [Tylenol] 1,000 mg PO NOW STA
06/27/24 05:04
US Abdomen Complete/Upper Urgent
Comment:
Reason For Exam: vomiting, pain
06/27/24 05:09
EKG- Treatment ONCE
06/27/24 05:34
Add On- LAB Urgent
Tests Added?: lipase
06/27/24 07:00
Electrocardiogram (*1) Urgent
Reason for Study: Chest Pain
Troponin I Urgent
06/27/24 07:35
Add On- LAB Urgent
Tests Added?: monotest
06/27/24 07:48
Aspirin 325 mg PO NOW STA
Nitroglycerin Ointment [Nitro-Bid] 1 inch TOPICAL NOW STA
Abnormal Lab Results
06/27/24 06/27/24
03:57 07:00
RBC 3.80 L 10^6/uL
(4.20-5.40)
Hgb 11.9 L g/dL
(12.0-16.0)
MCH 31.3 H pg
(27.0-31.0)
MCHC 32.1 L g/dL
(33.0-37.0)
MPV 10.6 H fL
(7.4-10.4)
Absolute Lymphs (auto) 0.3 L 10^3/uL
(1.2-3.4)
Neutrophils % 87.6 H %
(42.2-75.2)
Lymphocytes % 4.4 L %
(20.5-51.1)
Chloride 96 L mmol/L
(98-107)
Carbon Dioxide 34 H mmol/L
(22-30)
BUN 25 H mg/dl
(7-17)
Creatinine 1.2 H mg/dL
(0.6-1.0)
Glucose 144 H mg/dl
(70-99)
Total Bilirubin 2.6 H mg/dl
(0.2-1.3)
AST 1042 H* U/L
(14-36)
ALT 383 H U/L
(0-35)
Alkaline Phosphatase 204 H U/L
(38-126)
Troponin I 0.049 H* D ng/ml
06/27/24 03:57
06/27/24 03:57
Vital Signs
Initial and Last Documented VS:
Initial Vital Signs
Temp Pulse Resp BP Pulse Ox
102.4 F H 66 18 148/47 97
06/27/24 03:45 06/27/24 03:45 06/27/24 03:45 06/27/24 03:45 06/27/24 03:45
Last Documented Vital Signs
Temp Pulse Resp BP Pulse Ox
98.3 F 100 22 148/47 96
06/27/24 07:03 06/27/24 07:03 06/27/24 07:03 06/27/24 03:45 06/27/24 07:03
<Codi Barbosa MD - Last Filed: 06/27/24 07:52>
Orders/Labs/Results
Orders:
Orders
06/27/24 03:44
Electrocardiogram (*1) Urgent
Reason for Study: Chest Pain
Cardiac Monitoring- Treatment ONCE
EKG- Treatment ONCE
06/27/24 03:54
Chest [CR Chest - 2 Views ] Urgent
Comment:
Reason For Exam: sob
06/27/24 03:57
CMP [Comprehensive Metabolic Panel] Urgent
COVID-19 Antigen Urgent
Source: Nasal Swab
Complete Blood Count/With Diff Urgent
Lactic Acid Urgent
Lipase Urgent
Comment: ADD ON
NT-proBNP Urgent
Troponin I Urgent
Blood Culture Urgent
DAVID Source: Blood/Venous
Specimen Description:
Influenza A+B Rapid Molecular Urgent
DAVID Source: Nasal Swab
Specimen Description:
06/27/24 04:01
Acetaminophen [Tylenol] 1,000 mg .ROUTE .STK-MED ONE
06/27/24 04:03
Acetaminophen [Tylenol] 1,000 mg PO NOW STA
06/27/24 05:04
US Abdomen Complete/Upper Urgent
Comment:
Reason For Exam: vomiting, pain
06/27/24 05:09
EKG- Treatment ONCE
06/27/24 05:34
Add On- LAB Urgent
Tests Added?: lipase
06/27/24 07:00
Electrocardiogram (*1) Urgent
Reason for Study: Chest Pain
Troponin I Urgent
06/27/24 07:35
Add On- LAB Urgent
Tests Added?: monotest
06/27/24 07:48
Aspirin 325 mg PO NOW STA
Nitroglycerin Ointment [Nitro-Bid] 1 inch TOPICAL NOW STA
Abnormal Lab Results
06/27/24 06/27/24
03:57 07:00
RBC 3.80 L 10^6/uL
(4.20-5.40)
Hgb 11.9 L g/dL
(12.0-16.0)
MCH 31.3 H pg
(27.0-31.0)
MCHC 32.1 L g/dL
(33.0-37.0)
MPV 10.6 H fL
(7.4-10.4)
Absolute Lymphs (auto) 0.3 L 10^3/uL
(1.2-3.4)
Neutrophils % 87.6 H %
(42.2-75.2)
Lymphocytes % 4.4 L %
(20.5-51.1)
Chloride 96 L mmol/L
(98-107)
Carbon Dioxide 34 H mmol/L
(22-30)
BUN 25 H mg/dl
(7-17)
Creatinine 1.2 H mg/dL
(0.6-1.0)
Glucose 144 H mg/dl
(70-99)
Total Bilirubin 2.6 H mg/dl
(0.2-1.3)
AST 1042 H* U/L
(14-36)
ALT 383 H U/L
(0-35)
Alkaline Phosphatase 204 H U/L
(38-126)
Troponin I 0.049 H* D ng/ml
06/27/24 03:57
06/27/24 03:57
Vital Signs
Initial and Last Documented VS:
Initial Vital Signs
Temp Pulse Resp BP Pulse Ox
102.4 F H 66 18 148/47 97
06/27/24 03:45 06/27/24 03:45 06/27/24 03:45 06/27/24 03:45 06/27/24 03:45
Last Documented Vital Signs
Temp Pulse Resp BP Pulse Ox
98.3 F 100 22 148/47 96
06/27/24 07:03 06/27/24 07:03 06/27/24 07:03 06/27/24 03:45 06/27/24 07:03
<Indira Brooks DO - Last Filed: 06/27/24 05:36>
MDM/Problems Addressed
MDM/Problems Addressed:
73-year-old female with history of CAD status post stenting, hypertension, hyperlipidemia, COPD, pacemaker presenting for left-sided chest pain. Vital signs on arrival significant for fever
On exam patient is resting comfortably, no acute comfort. EKG obtained on arrival, AV dual paced rhythm, unchanged from prior. Notes symptoms have improved since arrival. Given cardiac history, ACS is a consideration, so will obtain laboratory
analysis including troponin. Patient noted to be febrile, so infectious pathology is also consideration such as pneumonia or viral syndrome. Will plan for chest x-ray imaging and viral swabs.
05:25 - Patient's labs show transaminitis and elevated T. bili. Patient notes that she has chronic elevation of her liver enzymes, however appear to be acutely elevated. Patient does have some focal right upper quadrant tenderness on reassessment.
Notes that she still has her gallbladder, had issues with her gallbladder in the past, requiring her percutaneous cholecystostomy tube. In the setting of fever and right upper quadrant pain, will obtain ultrasound imaging of the gallbladder.
Initial troponin within normal limits. Will plan for repeat EKG and troponin within a 3-hour time interval
<Indira Brooks DO - Last Filed: 06/27/24 05:36>
*EKG
Interpreted by ED Provider?: Yes
EKG Intrepretation Date: 06/27/24
EKG Intrepretation Time: 05:32
Interpretation: normal
Comparison EKG: no changes (10/21/22)
Heart Rate: 66
Rate: normal
Rhythm: sinus
[place]: normal axis
Interval: normal interval
QRS Pattern: normal QRS
Ischemia: no ischemia
*Critical Care Note
Total Time (30-74mins, 75-104mins- exclusive of procedures): Not Applicable
<Codi Barbosa MD - Last Filed: 06/27/24 07:52>
*Radiology
Radiology exam reviewed: radiology read reviewed
<Codi Barbosa MD - Last Filed: 06/27/24 07:52>
Update Note
Update Note:
7:50 AM patient's second troponin elevated. I went to evaluate her and she appears comfortable without any chest pain. Patient given aspirin already this morning by paramedics. Additionally, patient's ultrasound did not show common bile duct
dilatation. I am concerned giving patient has a fever and elevated LFTs. Patient may need an MRCP. Patient complains of mild vague right-sided abdominal pain
ED Attending Note
<Indira Brooks DO - Last Filed: 06/27/24 05:36>
-
Portions of this chart may have been created with voice recognition software.� Occasional wrong word or��sound alike� substitutions may have occurred due to the inherent limitations of voice recognition software.
Discharge Plan
Departure
Patient Disposition: Admit
Date of Disposition: 06/27/24
Time of Disposition: 07:46
Admit to: Telemetry
Presentation/result/management discussed w/ accepting MD/DO: Hospitalist
Patient with high blood pressure during this ER visit?: Yes
Covid-19: Not Applicable
Discharge Problem:
Elevated troponin, Chest pain in adult, Fever, Acutely elevated LFTs
Prescriptions:
No Action
magnesium oxide 400 MG tablet
400 mg PO HS
acetaminophen 500 mg Tablet
1,000 mg PO BID
mirtazapine 7.5 mg tablet
7.5 mg PO HS
midodrine 5 MG tablet
5 mg PO BID
solifenacin [Vesicare] 5 mg Tablet
5 mg PO DAILY
turmeric 400 mg Capsule
400 mg PO DAILY
ropinirole 3 mg Tablet
3 mg PO HS
rosuvastatin 20 mg Tablet
20 mg PO HS
melatonin 10 mg Tablet
10 mg PO HS
potassium gluconate
99 mg PO DAILY
furosemide 40 MG tablet
40 mg PO BID Qty: 30 0RF
aspirin 81 mg Tablet,Delayed Release (Dr/Ec)
81 mg PO DAILY Qty: 30 0RF
escitalopram oxalate 10 MG tablet
10 mg PO DAILY Qty: 30 0RF
aripiprazole 2 mg tablet
2 mg PO HS Qty: 30 0RF
Referrals:
UNKNOWN - PT DOES,NOT KNOW [Family Provider] -
Interventions
Interventions:
*Risk Screen - Suicide Last Done: 06/27/24 03:45
*General Assessment Last Done: 06/27/24 03:45
*Neglect/Abuse Screening Last Done: 06/27/24 03:45
ED- Fall Risk Assessment Last Done: 06/27/24 07:04
*ED COVID-19 Vaccine History Last Done: 06/27/24 03:45
ED- Cardiac Assessment Last Done: 06/27/24 07:04
Discharge Date and Time
Print Language: MONEGASQUE
[2024-06-27 05:33] LABS: AST (SGOT) 1042 U/L (14-36)
[2024-06-27 06:29] LABS: Lipase 204 U/L (23-300)
[2024-06-27 07:40] LABS: Troponin I 0.049 ng/ml
--- NOTE | 2024-06-27 08:25 | HPS.HSE ---
Family Physician
-
Family Physician: NOT KNOW UNKNOWN - PT DOES
Chief Complaint
-
Episode of vomiting/chest discomfort
History of Present Illness
73-year-old female with past medical history of coronary disease history of RCA stenting, chronic diastolic congestive heart failure, history of pacemaker placement, chronic kidney disease, essential hypertension, hyperlipidemia, chronic
Hypotension, alcohol use disorder, medical marijuana user, COPD, Morbid obesity came to ER after having episodes of bilious vomiting and chest discomfort in the morning. Patient woke up due to symptoms. Patient underwent 1 episode of vomiting and
had pressure-like chest discomfort during the same time. No blood in the vomitus. Denied having any diffuse abdominal pain. Patient is constipated and have noticed some blood in stool day before. Patient denies any associated shortness of
breath/diaphoresis/dizziness/palpitation. Patient was afebrile for last 48hrs.
Medical History
Past Medical History
Past Medical History: Reports Other
Additional Past Medical History:
coronary disease history of RCA stenting, chronic diastolic congestive heart failure, history of pacemaker placement, chronic kidney disease, essential hypertension, hyperlipidemia, chronic Hypotension, alcohol use disorder, medical marijuana user,
COPD, Morbid obesity
Past Surgical History: Reports Other
Social History
Tobacco: Former Smoker
Alcohol: Occasional
Drug: Marijuana
Living: Alone
Family History
Family History: Not pertinent
Allergies / Home Medications
Allergies reflects when Allergies were last updated in [employer].
Home Medications with original date entered in [employer]
Allergy/Medication List:
Allergies
Allergy/AdvReac Type Severity Reaction Status Date / Time
No Known Allergies Allergy Verified 06/27/24 03:53
Home Medications
magnesium oxide 400 mg PO HS Supplement 09/07/21
acetaminophen 500 mg tablet 1,000 mg PO BID Pain 01/15/22
midodrine 5 mg tablet 5 mg PO BID Blood pressure 01/15/22
mirtazapine 7.5 mg tablet 7.5 mg PO HS Depression 01/15/22
solifenacin 5 mg tablet (Vesicare) 5 mg PO DAILY Urinary issue 10/21/22
turmeric 400 mg capsule 400 mg PO DAILY Supplement 10/21/22
melatonin 10 mg tablet 10 mg PO HS Sleep 09/20/23
potassium gluconate 550 mg (90 mg) tablet 550 mg PO DAILY Supplement ##0 09/20/23
ropinirole 3 mg tablet 3 mg PO HS Neurological Condition 09/20/23
rosuvastatin 20 mg tablet 20 mg PO HS High Cholesterol 09/20/23
aripiprazole 2 mg tablet 2 mg PO HS Mental Health/Anxiety #30 tabs 09/21/23
aspirin 81 mg tablet,delayed release 81 mg PO DAILY Blood Clot Prevention/Tx #30 tabs 09/21/23
escitalopram oxalate 10 mg tablet 10 mg PO DAILY Mental Health #30 tabs 09/21/23
furosemide 40 mg tablet 40 mg PO BID Fluid retention/Swelling #30 tabs 09/21/23
semaglutide (weight loss) 2.4 mg/0.75 mL subcutaneous pen injector (Wegovy) 2.4 mg SC TU 06/27/24
Review of Systems
-
A 12 point ROS was completed and negative except as noted: Yes
Physical Exam
Vital Signs
Vital Signs
Temp Pulse Resp BP Pulse Ox
98.3 F 100 22 98/67 96
06/27/24 07:03 06/27/24 07:03 06/27/24 07:03 06/27/24 08:06 06/27/24 07:03
Physical Exam
General: No Apparent Distress and Obese
HEENT: NormoCephalic and Moist mucous membranes
Respiratory: Clear
Cardiac: S1/S2 and Regular Rhythm; No Murmur or Rub
GI: Soft, Non Distended, Normal Bowel Sounds and Tender (RUQ); No Organomegaly
Rectal: Deferred by Provider
Musculoskeletal: No Clubbing, No Cyanosis, Edema, Left Lower Extremity and Edema, Right Lower Extremity
Skin: No Rash
Neuro: Awake, Alert, Oriented and Nonfocal/grossly intact
Laboratory Results
-
06/27/24 03:57
06/27/24 03:57
Laboratory Results
Lactic Acid 1.6 mmol/L (0.7-2.0) 06/27/24 03:57
Total Bilirubin 2.6 mg/dl (0.2-1.3) H 06/27/24 03:57
AST 1042 U/L (14-36) H* 06/27/24 03:57
ALT 383 U/L (0-35) H 06/27/24 03:57
Alkaline Phosphatase 204 U/L (38-126) H 06/27/24 03:57
Troponin I 0.049 ng/ml H* D 06/27/24 07:00
Lipase 204 U/L (23-300) 06/27/24 03:57
Data Reviewed
-
Lab Data: Labs Reviewed by me
Impression/Plan
-
US abdomen
Liver is unremarkable in echotexture without evidence of focal lesion. The portal and hepatic vessels appear grossly patent.
No intra- or extrahepatic biliary ductal dilatation with the visualized portion of the common duct measuring 6 mm. No gallstones, gallbladder wall thickening, pericholecystic fluid or sonographic Vázquez's sign.
Limited visualization of the tail of the pancreas, with the visualized portion of the pancreas appearing heterogeneous, nonspecific. Spleen measures 10.2 cm in length, which is not enlarged. No free fluid in the upper abdomen.
Right kidney measures 9.0 cm, and the left kidney measures 9.4 cm in length. No hydronephrosis.
Visualized portions of the abdominal aorta and inferior vena cava appear unremarkable.

1. Acute transaminitis/hepatitis
Nausea/vomiting
-Patient presented with acute onset of vomiting episode in the night, bilious in nature. no blood.
-ALT 1042 AST 383 ALP 204. T rochelle 2.6. Lipase WNL.
-RUQ US as above -normal bile duct. Gallbladder was not able to be visualized
-Potential different show of alcohol use related liver injury vs DILI vs billary problems
-Deferring hepatitis panel check to GI. Monoscreen is negative
-Hold home dose of rosuvastatin
-Discussed with GI, plan to get MRI MRCP
-Maintain on CL diet for now
-Tiagan for nausea/vomiting.
2. Elevate troponin
h/o of CAD and RCA stenting
-Patient had episode of chest discomfort with nausea/vomit
-EKG reviewed and paced rhythm, unable to discern ST segment change
-Troponin 0.022 > 0.049 > 0.051 > f/u pending
-Troponin marginally elevated we will follow-up, if any further significant elevation will involve cardiology for evaluation
3. Chronic diastolic HF
-No signs of exacerbation
-hold lasix 40mg/bid as on CL diet
DVT PPX - heparin subq
Full code
Total time spent : 78 mins
I personally saw and examined the patient.
I have reviewed all diagnostic interpretations and treatment plans as written.
Time includes patient management by me, time spent at the patients bedside, time to review lab and imaging results, discussing patient care, documentation in the medical record, and time spent with the family or caregiver and discussing care plan
with RN/Consultants.
[2024-06-27 08:48] LABS: Monotest Negative (Negative)
--- NOTE | 2024-06-27 10:41 | CON.GI ---
Addendum entered and electronically signed by Anna Phan MD 06/27/24 15:15:
I saw and examined the patient.
The DOOR LINER or PA's note was reviewed and I agree with the note.
Comment: 73-year-old female with history of CAD/stents in the past, history of CHF status post pacemaker placement in 2021, COPD presenting with complaints of nausea and vomiting with started 3 days ago without any significant abdominal pain. No
sick contacts or eating out. Yesterday she had chest pain in the left precordial area and also fevers up to 102 and that is what brought her into the emergency room. In the emergency room, troponin was slightly elevated, LFTs were elevated
including total bili of 2.6, alkaline phosphatase of 204, AST of 1042 and ALT of 383. Abdominal ultrasound-gallbladder not well-visualized. She did start Wegovy 3 to 4 months ago and lost about 22 pounds. No previous GI history. Reports
intermittent bright blood per rectum with bowel movements . Never had a colonoscopy.
-Elevated LFTs without significant abdominal pain with nausea and vomiting. LFTs in August 2023 in normal range except slight elevation in ALT
Abdominal ultrasound could not visualize gallbladder well
Rule out cholecystitis/choledocholithiasis
Patient currently on broad-spectrum antibiotics given she did present with fever
Await MRI/MRCP
N.p.o. for now
Trending troponin as well given chest pain
Will follow-up on the imaging
Last Wegovy dose about a week ago Wednesday
-Intermittent bright blood per rectum, will monitor as inpatient.
Will eventually need outpatient colonoscopy.
Original Note:
Consultation
-
Date/Time Consultation Requested: 06/27/23 0820
Date/Time Consultation Performed: 06/27/23 1040
Requesting Provider: Vini Zavala MD
Performing Provider: ALLA Bates, Anna Phan MD
Reason for Consultation: increased LFT's
Medical History
Chief Complaint / HPI
Chief Complaint: chest pain
History of Present Illness:
Pt is a 73yo with hx CAD with prior NE with prior stenting, CHF, pacer, COPD, HTN, hypercholesterolemia, anxiety/depression, arthritis, neuropathy- ETOH related, prior heavy ETOH use now social ETOH use, with onset of chest pain with vomiting. On
admission noted with marked elevated LFT's with bili 2.6, AST 1042, ALT 383, alk phos 204 with normal lipase, fever up to 102.4 and also some slight rise in Troponin after admission. Us of abdomen was completed with heterogeneous pancreas
otherwise unremarkable with gallbladder not well visualized, liver without focal lesion with portal and hepatic vessel grossly patent and no intra or extrahepatic biliary dilatation with CBD 6mm no stone,GBWT or fluid noted. Pt states symptoms
started about 4 days with chest pain, nausea, vomiting and chills. She was concerned for possible norovirus or cardiaca etiology.
At this time chest pain resolved. She admits to vomiting larger amount mostly juice she did drink. she also admits to hx constipation and also recent rectal bleeding with streaks of red blood in stool. She has also had wt loss with 22 lb loss
with use of Wegovy starting about 3-4 months ago. She did miss a few days with cost but resulted about 2 weeks ago. She denies hematemesis, GERD, dysphagia, abdominal pain, diarrhea, or black stools. Pt is on ASA but denies other NSAID use.
Past Medical History
Past Medical History: CAD, CHF, COPD, HTN, Hypercholesterolemia, NE, Psychiatric (anxiety/depression) and Other (arthritis, neuropathy, ETOH abuse, hypotension, venous stasis )
Past Surgical History: Cardiac (stents, pacer ), Orthopedic (b/l TKR, foot bunion surgery, low back surgery ) and Other (thyroid polyp removal)
Social History
Tobacco: Vaping
Alcohol: Occasional (hx prior heavy 40 years ago now 1-2 drinks couple per week )
Drug: None
Living: Alone
Employment: Retired
Family History
Family History: Other
Allergies / Home Medications
Allergy/AdvReac Type Severity Reaction Status Date / Time
No Known Allergies Allergy Verified 06/27/24 03:53
�Medication �Instructions �Recorded
magnesium oxide 400 mg PO HS Supplement 09/07/21
acetaminophen 500 mg tablet 1,000 mg PO BID Pain 01/15/22
midodrine 5 mg tablet 5 mg PO BID Blood pressure 01/15/22
mirtazapine 7.5 mg tablet 7.5 mg PO HS Depression 01/15/22
solifenacin 5 mg tablet (Vesicare) 5 mg PO DAILY Urinary issue 10/21/22
turmeric 400 mg capsule 400 mg PO DAILY Supplement 10/21/22
melatonin 10 mg tablet 10 mg PO HS Sleep 09/20/23
potassium gluconate 550 mg (90 mg) 550 mg PO DAILY Supplement ##0 09/20/23
tablet
ropinirole 3 mg tablet 3 mg PO HS Neurological Condition 09/20/23
rosuvastatin 20 mg tablet 20 mg PO HS High Cholesterol 09/20/23
aripiprazole 2 mg tablet 2 mg PO HS Mental Health/Anxiety 09/21/23
#30 tabs
aspirin 81 mg tablet,delayed 81 mg PO DAILY Blood Clot 09/21/23
release Prevention/Tx #30 tabs
escitalopram oxalate 10 mg tablet 10 mg PO DAILY Mental Health #30 09/21/23
tabs
furosemide 40 mg tablet 40 mg PO BID Fluid 09/21/23
retention/Swelling #30 tabs
semaglutide (weight loss) 2.4 2.4 mg SC TU 06/27/24
mg/0.75 mL subcutaneous pen
injector (Wegovy)
Review of Systems
-
History Source: Patient
Constitutional: Reports Fever, Weight Loss, Fatigue and Chills
EENT: Reports No Symptoms
Respiratory: Reports No Symptoms
Cardiac: Reports Chest Pain
Abdomen/GI: Reports Nausea, Constipated and Bloody Stools
: Reports No Symptoms
Musculoskeletal: Reports No Symptoms
Skin: Reports No Symptoms
Neurological: Reports Weakness
Endocrine: Reports No Symptoms
Hematologic/Lymphatic: Reports Bleeding
Vital Signs
Temp Pulse Resp BP Pulse Ox
98.3 F 60 15 99/45 94
06/27/24 07:03 06/27/24 09:00 06/27/24 09:00 06/27/24 09:00 06/27/24 09:00
Physical Exam
Exam
General: Well Developed, Well Nourished, Fever and Chills
HEENT: Other (mild jaundice )
Respiratory: Clear
Cardiac: Regular Rhythm
GI: Soft, Non Tender and Non Distended
Musculoskeletal: No Clubbing and No Cyanosis
Skin: Warm and Dry
Neuro: Awake, Alert and AO x 3
Psych: Calm
Results
WBC 6.3 10^3/uL (4.8-10.8) 06/27/24 03:57
Hgb 11.9 g/dL (12.0-16.0) L 06/27/24 03:57
Hct 37.1 % (37.0-47.0) 06/27/24 03:57
MCV 97.6 fL (81.0-99.0) 06/27/24 03:57
Plt Count 185 10^3/uL (130-400) 06/27/24 03:57
Absolute Neuts (auto) 5.5 10^3/uL (1.4-6.5) 06/27/24 03:57
Sodium 139 mmol/L (135-145) 06/27/24 03:57
Potassium 4.4 mmol/L (3.5-5.1) 06/27/24 03:57
Chloride 96 mmol/L (98-107) L 06/27/24 03:57
Carbon Dioxide 34 mmol/L (22-30) H 06/27/24 03:57
BUN 25 mg/dl (7-17) H 06/27/24 03:57
Creatinine 1.2 mg/dL (0.6-1.0) H 06/27/24 03:57
Calcium 9.2 mg/dl (8.4-10.2) 06/27/24 03:57
Total Bilirubin 2.6 mg/dl (0.2-1.3) H 06/27/24 03:57
AST 1042 U/L (14-36) H* 06/27/24 03:57
ALT 383 U/L (0-35) H 06/27/24 03:57
Alkaline Phosphatase 204 U/L (38-126) H 06/27/24 03:57
Lipase 204 U/L (23-300) 06/27/24 03:57
Diagnostic Image Results:
06/27/24 Us of abdomen- heterogeneous pancreas otherwise unremarkable with gallbladder not well visualized, liver without focal lesion with portal and hepatic vessel grossly patent and no intra or extrahepatic biliary dilatation with CBD 6mm no
stone,GBWT or fluid noted.
Prior GI Procedures:
EGD: none
Colonoscopy: none
Assessment / Plan
-
Pt is a 73yo with hx CAD with prior NE with prior stenting, CHF, pacer, COPD, HTN, hypercholesterolemia, anxiety/depression, arthritis, neuropathy- ETOH related, prior heavy ETOH use now social ETOH use, with onset of chest pain with vomiting. On
admission noted with marked elevated LFT's with bili 2.6, AST 1042, ALT 383, alk phos 204 with normal lipase, fever up to 102.4 and also some slight rise in Troponin after admission. Us of abdomen was completed with heterogeneous pancreas
otherwise unremarkable with gallbladder not well visualized, liver without focal lesion with portal and hepatic vessel grossly patent and no intra or extrahepatic biliary dilatation with CBD 6mm no stone,GBWT or fluid noted. Pt states symptoms
started about 4 days with chest pain, nausea, vomiting and chills. She was concerned for possible norovirus or cardiaca etiology. Daily ASA use.
-chest pain/vomiting prior to admission
-fever/chills on admission
-mild hypotension on admission
-increased LFT's
-mild increased troponin
-wt loss with recent Wegovy use
-rectal bleeding prior to admission
other med problems:
-CHF
-Pacer
-COPD
-HTN
-hypercholesterolemia
-anxiety/depression
-arthritis
-ETOH use- heavy in past
-neuropathy
PLAN:
Etiology of symptoms related to biliary source- CBD stone, cholecystitis( with recent wt loss and start of Wegovy) vs cardiac with chest pain wtih trop increased vs other
will add MRI with MRCP
if + then will need ERCP
trend labs
NPO
reviewed with Dr. Zavala for adding antibiotics with fever
blood cx x 1 pending and for repeat now
Last dose Wegovy 1 week prior to admission
I reviewed with Dr. Zavaal for increased trop await further trend and need for cards eval with hx Stents
hx rectal bleeding -- monitor during admission and consider OP colonoscopy when improved-- no hx colonoscopy in past
-
-
Thank you for consultation and allowing me to participate in the patient's care. Please call the branch operations specialist GI physician during the after hours with any questions or concerns.
[2024-06-27 10:47] LABS: Troponin I 0.051 ng/ml
--- NOTE | 2024-06-27 10:54 | EDRN ---
Dr Latham notified of critical value troponin
[2024-06-27] MEDS: VESICARE 5 MG PO (11:37)
[2024-06-27] MEDS: LEXAPRO 10 MG PO (11:37)
[2024-06-27] MEDS: ZOSYN 50 IV ×2 (14:14→21:04)
[2024-06-27 14:47] LABS: Troponin I 0.033 ng/ml
[2024-06-27] MEDS: HEPARIN 5000 UNITS SC (21:04)
[2024-06-27] MEDS: REQUIP 3 MG PO (21:04)
[2024-06-27] MEDS: REMERON 7.5 MG PO (21:05)
[2024-06-27] MEDS: ABILIFY 2 MG PO (21:05)
[2024-06-27] MEDS: MELATONIN 10 MG PO (22:09)
[2024-06-28] MEDS: ZOSYN 50 IV ×4 (02:56→19:56)
[2024-06-28 05:34] VITALS: BMI 34.7
[2024-06-28 07:45] VITALS: BP 119/65
[2024-06-28] MEDS: VESICARE 5 MG PO (07:46)
[2024-06-28] MEDS: HEPARIN 5000 UNITS SC ×2 (07:46→19:57)
[2024-06-28] MEDS: LEXAPRO 10 MG PO (07:46)
[2024-06-28 08:00] LABS: Hematocrit 35.1 % (37.0-47.0); Hemoglobin 11.4 g/dL (12.0-16.0); Mean Corp Hgb Conc. 32.5 g/dL (33.0-37.0); Mean Corpuscular Hgb 31.3 pg (27.0-31.0); Mean Corpuscular Volume 96.4 fL (81.0-99.0); Mean Platelet Volume 10.9 fL (7.4-10.4); Platelet Count 163 10^3/uL (130-400); Red Blood Cell Count 3.64 10^6/uL (4.20-5.40); Red Cell Dist. Width 13.6 % (11.5-14.5); White Blood Cell Count 6.7 10^3/uL (4.8-10.8)
[2024-06-28 08:26] LABS: ALT (SGPT) 210 U/L (0-35); AST (SGOT) 241 U/L (14-36); Albumin 3.8 g/dl (3.5-5.0); Alkaline Phosphatase 183 U/L (38-126); Blood Urea Nitrogen 19 mg/dl (7-17); Carbon Dioxide 30 mmol/L (22-30); Chloride 98 mmol/L (98-107); Estimated Creatinine Clearance 53 ml/min; Glucose 103 mg/dl (70-99); Potassium 3.7 mmol/L (3.5-5.1); Sodium 134 mmol/L (135-145); Total Bilirubin 3.5 mg/dl (0.2-1.3); Total Protein 6.5 g/dl (6.3-8.2)
[2024-06-28] MEDS: LASIX 40 MG PO ×2 (12:20→15:56)
--- NOTE | 2024-06-28 12:26 | CM ---
Pt seen bedside. Initial assessment completed. Admitted for elevated creatinine.
Pt reports she lives alone in an apartment at [facility]. Pt reports she is independent w/ the use of her rollator. Pt states her rollator is currently broke and has to get a new one.
Pt states she was at [facility] in the past, engaged in OP therapy at and [facility] in the past.
Pt states she was known to [facility] in the past
Address, point of contact and insurance verified
PCP: Pt stated she has a nurse practitioner who follows her that is through [facility] [place] but does not remember her name
Pharmacy: [facility]
Pt states that she recently became a part of [facility] which is associated w/ [facility] [place]. Pt states from what she can understand, that [facility] ([facility] is a program through [facility] that offers and coordinates services
for her if she needs it.
Pt states she is not completely well rounded on all what this offers but hopes they'll be able to provide her w/ a new rollator.
Plan: Home; no needs anticipated
--- NOTE | 2024-06-28 12:40 | W.PN.GI.CBS2 ---
Addendum entered and electronically signed by Anna Phan MD 06/28/24 16:08:
I saw and examined the patient.
The PRODUCT PROMOTER SALES PERSON or PA's note was reviewed and I agree with the note.
Comment: Patient reports some discomfort in the upper abdomen but no nausea or vomiting. Currently tolerating clear liquid diet. No bowel movements yet.
No fevers or chills.
Labs show bilirubin did go up from 2.6-3.5, AST, ALT and alkaline phosphatase trending down.
Await MRCP/MRI tomorrow.
Agree with continuing antibiotics.
Will follow-up
Original Note:
Today's Communication / Plan
-
Etiology of symptoms related to biliary source- CBD stone, cholecystitis( with recent wt loss and start of Wegovy) vs cardiac with chest pain wtih trop increased vs other
awaiting MRI with MRCP -- plan for AM as need to do pacer protocol
support given as pt anxious for testing and agreeable to proceed for MRI tomorrow
NPO in AM for MRI then if + stone/other pathology may need ERCP
trend labs - some higher lower AST/ALT/ALk phos
on clear diet
cont abx no further fever/chills since admission
blood cx neg so far
Last dose Wegovy 1 week prior to admission
hx rectal bleeding -- monitor during admission and consider OP colonoscopy when improved-- no hx colonoscopy in past--
Assessment / Plan
-
Pt is a 73yo with hx CAD with prior [place] with prior stenting, CHF, pacer, COPD, HTN, hypercholesterolemia, anxiety/depression, arthritis, neuropathy- ETOH related, prior heavy ETOH use now social ETOH use, with onset of chest pain with vomiting. On
admission noted with marked elevated LFT's with bili 2.6, AST 1042, ALT 383, alk phos 204 with normal lipase, fever up to 102.4 and also some slight rise in Troponin after admission. Us of abdomen was completed with heterogeneous pancreas
otherwise unremarkable with gallbladder not well visualized, liver without focal lesion with portal and hepatic vessel grossly patent and no intra or extrahepatic biliary dilatation with CBD 6mm no stone,GBWT or fluid noted. Pt states symptoms
started about 4 days with chest pain, nausea, vomiting and chills. She was concerned for possible norovirus or cardiaca etiology. Daily ASA use.
-chest pain/vomiting prior to admission
-fever/chills on admission
-mild hypotension on admission
-increased LFT's
-mild increased troponin with improvement after admission
-wt loss with recent Wegovy use
-rectal bleeding prior to admission
other med problems:
-CHF
-Pacer
-COPD
-HTN
-hypercholesterolemia
-anxiety/depression
-arthritis
-ETOH use- heavy in past
-neuropathy
PLAN:
Etiology of symptoms related to biliary source- CBD stone, cholecystitis( with recent wt loss and start of Wegovy) vs cardiac with chest pain wtih trop increased vs other
awaiting MRI with MRCP -- plan for AM as need to do pacer protocol
support given as pt anxious for testing and agreeable to proceed for MRI tomorrow
NPO in AM for MRI then if + stone/other pathology may need ERCP
trend labs - some higher lower AST/ALT/ALk phos
on clear diet
cont abx no further fever/chills since admission
blood cx neg so far
Last dose Wegovy 1 week prior to admission
hx rectal bleeding -- monitor during admission and consider OP colonoscopy when improved-- no hx colonoscopy in past--
Subjective
Subjective
Date of Service: June 28, 2024
clear diet, no stools - pt frustrated about waiting for MRI but want to proceed with work up for etiology of pain-- no recurrent chills or chest pain
Objective
Data Reviewed
Laboratory Data:
Laboratory Results
06/28/24 07:20
06/28/24 07:20
Laboratory Results
Total Bilirubin 3.5 mg/dl (0.2-1.3) H 06/28/24 07:20
AST 241 U/L (14-36) H 06/28/24 07:20
ALT 210 U/L (0-35) H 06/28/24 07:20
Alkaline Phosphatase 183 U/L (38-126) H 06/28/24 07:20
Lipase 204 U/L (23-300) 06/27/24 03:57
Vital Signs and I&O:
Vital Signs
Temp Pulse Resp BP Pulse Ox
98.0 F 75 18 124/73 96
06/28/24 07:45 06/28/24 12:20 06/28/24 07:45 06/28/24 12:20 06/28/24 11:53
I&O
06/27/24 06/28/24 06/29/24
06:59 06:59 06:59
Intake Total 600 / 600
Balance 600 / 600
Physical Exam
Physical Exam
HEENT: Anicteric and Moist mucous membranes
Cardiology: Normal Sinus Rhythm
Pulmonary: Clear
GI: Soft, Non Distended and Non Tender
Extremities: Edema (chronic )
Neuro: Non Focal
[2024-06-28 13:32] VITALS: BP 124/73; PULSE 75; O2SAT 98
--- NOTE | 2024-06-28 14:29 | W.PN.HOSP.TC ---
Today's Communication/Plan
-
MRI tomorrow
resume lasix
continue abx
Assessment / Plan
Assessment / Plan
US abdomen
Liver is unremarkable in echotexture without evidence of focal lesion. The portal and hepatic vessels appear grossly patent.
No intra- or extrahepatic biliary ductal dilatation with the visualized portion of the common duct measuring 6 mm. No gallstones, gallbladder wall thickening, pericholecystic fluid or sonographic Vázquez's sign.
Limited visualization of the tail of the pancreas, with the visualized portion of the pancreas appearing heterogeneous, nonspecific. Spleen measures 10.2 cm in length, which is not enlarged. No free fluid in the upper abdomen.
Right kidney measures 9.0 cm, and the left kidney measures 9.4 cm in length. No hydronephrosis.
Visualized portions of the abdominal aorta and inferior vena cava appear unremarkable.

1. Acute transaminitis/hepatitis
Nausea/vomiting
Episode of fever
-Patient presented with acute onset of vomiting episode in the night, bilious in nature. no blood.
-ALT 1042 AST 383 ALP 204. T rochelle 2.6. Lipase WNL. -LFTs trending down rapid
-RUQ US as above -normal bile duct. Gallbladder was not able to be visualized
-Potential different show of alcohol use related liver injury vs DILI vs billary problems
-Deferring hepatitis panel check to GI. Monoscreen is negative
-Hold home dose of rosuvastatin
-MRI MRCP planned for tomorrow morning
-Patient had episode of fever yesterday, no clear signs of supporting acute cholangitis, maintained on empiric Zosyn for now.
2. Elevate troponin -nonischemic myocardial injury related
h/o of CAD and RCA stenting
-Patient had episode of chest discomfort with nausea/vomit
-EKG reviewed and paced rhythm, unable to discern ST segment change
-Troponin 0.022 > 0.049 > 0.051 > 0.03
-Troponin trended down
3. Chronic diastolic HF
-No signs of exacerbation
-resume lasix 40mg/d back
4. Chronic hypotension
-continue midodrine with holding parameter.
DVT PPX - heparin subq
Full code
Anticipated Discharge: Within 24 hours
Subjective/Interval History
-
Date of Service: June 28, 2024
Denies of any abdominal pain/nausea/vomiting overnight
Afebrile
Objective Data
-
Labs:
Laboratory Results
06/28/24
07:20
WBC 6.7
Hgb 11.4 L
Hct 35.1 L
Plt Count 163
Sodium 134 L
Potassium 3.7
Chloride 98
Carbon Dioxide 30
BUN 19 H
Creatinine 1.2 H
Glucose 103 H
Calcium 9.0
Total Bilirubin 3.5 H
AST 241 H
ALT 210 H
Alkaline Phosphatase 183 H
Vital Signs:
Vital Signs
Temp Pulse Resp BP Pulse Ox
98.0 F 75 18 124/73 96
06/28/24 07:45 06/28/24 12:20 06/28/24 07:45 06/28/24 12:20 06/28/24 11:53
I&O
06/27/24 06/28/24 06/29/24
06:59 06:59 06:59
Intake Total 600 / 600
Balance 600 / 600
Review of Systems
-
Respiratory: Reports No Symptoms
Cardiac: Reports No Symptoms
Abdomen/GI: Reports No Symptoms
Physical Exam
-
General: Well Developed
HEENT: Negative Oxygen
GI: Soft, Nontender and Nondistended
Neuro: Awake, Alert and No Motor Deficits
[2024-06-28 15:45] VITALS: BP 116/77; PULSE 61; O2SAT 100
[2024-06-28 15:59] VITALS: BP 116/77
[2024-06-28 19:51] VITALS: BP 119/60
[2024-06-28] MEDS: REQUIP 3 MG PO (22:00)
[2024-06-28] MEDS: ABILIFY 2 MG PO (22:00)
[2024-06-28] MEDS: REMERON 7.5 MG PO (22:00)
[2024-06-28] MEDS: BenGay-Like 1 APPLIC TOPICAL (23:05)
[2024-06-28 23:22] VITALS: BP 141/79
[2024-06-29] MEDS: ZOSYN 50 IV ×4 (02:11→20:03)
[2024-06-29 06:54] VITALS: BP 117/67
[2024-06-29] MEDS: LEXAPRO 10 MG PO (08:46)
[2024-06-29] MEDS: LASIX 40 MG PO ×2 (08:46→16:31)
[2024-06-29] MEDS: VESICARE 5 MG PO (08:46)
[2024-06-29] MEDS: HEPARIN 5000 UNITS SC ×2 (08:47→20:03)
[2024-06-29 08:53] LABS: Hematocrit 35.7 % (37.0-47.0); Hemoglobin 11.8 g/dL (12.0-16.0); Mean Corp Hgb Conc. 33.1 g/dL (33.0-37.0); Mean Corpuscular Hgb 31.6 pg (27.0-31.0); Mean Corpuscular Volume 95.5 fL (81.0-99.0); Mean Platelet Volume 10.9 fL (7.4-10.4); Platelet Count 160 10^3/uL (130-400); Red Blood Cell Count 3.74 10^6/uL (4.20-5.40); Red Cell Dist. Width 13.4 % (11.5-14.5); White Blood Cell Count 4.8 10^3/uL (4.8-10.8)
[2024-06-29 09:01] LABS: INR 1.02
[2024-06-29 10:07] LABS: ALT (SGPT) 132 U/L (0-35); AST (SGOT) 99 U/L (14-36); Albumin 3.9 g/dl (3.5-5.0); Alkaline Phosphatase 154 U/L (38-126); Blood Urea Nitrogen 15 mg/dl (7-17); Calcium 8.6 mg/dl (8.4-10.2); Carbon Dioxide 29 mmol/L (22-30); Chloride 100 mmol/L (98-107); Estimated Creatinine Clearance 53 ml/min; Glucose 87 mg/dl (70-99); Potassium 3.4 mmol/L (3.5-5.1); Sodium 140 mmol/L (135-145); Total Bilirubin 1.9 mg/dl (0.2-1.3); Total Protein 6.5 g/dl (6.3-8.2)
--- NOTE | 2024-06-29 14:29 | W.PN.HOSP.TC ---
Today's Communication/Plan
-
MRI abd pending
d/c home if MRI neg
Assessment / Plan
Assessment / Plan
US abdomen
Liver is unremarkable in echotexture without evidence of focal lesion. The portal and hepatic vessels appear grossly patent.
No intra- or extrahepatic biliary ductal dilatation with the visualized portion of the common duct measuring 6 mm. No gallstones, gallbladder wall thickening, pericholecystic fluid or sonographic Vázquez's sign.
Limited visualization of the tail of the pancreas, with the visualized portion of the pancreas appearing heterogeneous, nonspecific. Spleen measures 10.2 cm in length, which is not enlarged. No free fluid in the upper abdomen.
Right kidney measures 9.0 cm, and the left kidney measures 9.4 cm in length. No hydronephrosis.
Visualized portions of the abdominal aorta and inferior vena cava appear unremarkable.

1. Acute transaminitis/hepatitis
Nausea/vomiting
Episode of fever
-Patient presented with acute onset of vomiting episode in the night, bilious in nature. no blood.
-ALT 1042 AST 383 ALP 204. T rochelle 2.6. Lipase WNL. -LFTs trending down rapidly
-RUQ US as above -normal bile duct. Gallbladder was not able to be visualized
-Potential different show of alcohol use related liver injury vs DILI vs billary problems
-Deferring hepatitis panel check to GI. Monoscreen is negative
-Hold home dose of rosuvastatin
-MRI MRCP pending today
-Continue on empiric zosyn for billiary source of infection.
2. Elevate troponin -nonischemic myocardial injury related
h/o of CAD and RCA stenting
-Patient had episode of chest discomfort with nausea/vomit
-EKG reviewed and paced rhythm, unable to discern ST segment change
-Troponin 0.022 > 0.049 > 0.051 > 0.03
-Troponin trended down
3. Chronic diastolic HF
-No signs of exacerbation
-resume lasix 40mg/d back
4. Chronic hypotension
-continue midodrine with holding parameter.
DVT PPX - heparin subq
Full code
Anticipated Discharge: Within 24 hours
Subjective/Interval History
-
Date of Service: June 29, 2024
no abd pain/nausea/vomiting
no other issues
Objective Data
-
Labs:
Laboratory Results
06/29/24
08:19
WBC 4.8
Hgb 11.8 L
Hct 35.7 L
Plt Count 160
PT 14.0
INR 1.02
Sodium 140
Potassium 3.4 L
Chloride 100
Carbon Dioxide 29
BUN 15
Creatinine 1.2 H
Glucose 87
Calcium 8.6
Total Bilirubin 1.9 H D
AST 99 H
ALT 132 H
Alkaline Phosphatase 154 H
Vital Signs:
Vital Signs
Temp Pulse Resp BP Pulse Ox
97.9 F 76 18 117/67 96
06/29/24 06:54 06/29/24 08:47 06/29/24 06:54 06/29/24 08:47 06/29/24 06:54
I&O
06/28/24 06/29/24 06/30/24
06:59 06:59 06:59
Intake Total 600 / 600 720 / 720
Balance 600 / 600 720 / 720
Review of Systems
-
Respiratory: Reports No Symptoms
Cardiac: Reports No Symptoms
Abdomen/GI: Reports No Symptoms
Physical Exam
-
General: Well Developed
HEENT: Negative Oxygen
GI: Soft, Nontender and Nondistended
Neuro: Awake, Alert and No Motor Deficits
[2024-06-29 16:35] VITALS: BP 158/74
--- NOTE | 2024-06-29 18:23 | W.PN.GI.CBS2 ---
Today's Communication / Plan
-
-Choledocholithiasis causing CP/epigastric pain and elevated LFT's
For ERCP tomorrow
NPO past midnight
currently on broad spectrum Abx
hx rectal bleeding -- monitor during admission and consider OP colonoscopy when improved-- no hx colonoscopy in past--
Assessment / Plan
-
Pt is a 73yo with hx CAD with prior ME with prior stenting, CHF, pacer, COPD, HTN, hypercholesterolemia, anxiety/depression, arthritis, neuropathy- ETOH related, prior heavy ETOH use now social ETOH use, with onset of chest pain with vomiting. On
admission noted with marked elevated LFT's with bili 2.6, AST 1042, ALT 383, alk phos 204 with normal lipase, fever up to 102.4 and also some slight rise in Troponin after admission. Us of abdomen was completed with heterogeneous pancreas
otherwise unremarkable with gallbladder not well visualized, liver without focal lesion with portal and hepatic vessel grossly patent and no intra or extrahepatic biliary dilatation with CBD 6mm no stone,GBWT or fluid noted. Pt states symptoms
started about 4 days with chest pain, nausea, vomiting and chills. She was concerned for possible norovirus or cardiaca etiology. Daily ASA use.
-chest pain/vomiting prior to admission
-fever/chills on admission
-mild hypotension on admission
-increased LFT's
-mild increased troponin with improvement after admission
-wt loss with recent Wegovy use
-rectal bleeding prior to admission
other med problems:
-CHF
-Pacer
-COPD
-HTN
-hypercholesterolemia
-anxiety/depression
-arthritis
-ETOH use- heavy in past
-neuropathy
PLAN:
MRI/MRP SHOWING Gallbladder is contracted and contains multiple small gallstones. No evidence for gallbladder wall thickening or pericholecystic edema, with no findings to suggest acute cholecystitis by MRI. Mild central intrahepatic bile duct
dilation. Common hepatic duct and common bile duct measures up to 7.5 mm, in the upper range of normal. There are however several common bile duct calculi in the inferior aspect of the common bile duct. 1 cm cyst at the posterior margin of the right
lobe liver. Multiple top normal slightly enlarged lymph nodes in the periportal and portacaval region. These are nonspecific, but statistically these are likely reactive inflammatory lymph nodes, fairly commonly seen in this region. There are small
periaortic lymph nodes, not enlarged by size criteria. Colonic diverticula seen involving the distal descending colon and the sigmoid colon.
-Choledocholithiasis causing CP/epigastric pain and elevated LFT's
For ERCP tomorrow
NPO past midnight
currently on broad spectrum Abx
hx rectal bleeding -- monitor during admission and consider OP colonoscopy when improved-- no hx colonoscopy in past--
Subjective
Subjective
Date of Service: June 29, 2024
Patient without abdominal pain, nausea, vomiting
Objective
Data Reviewed
Laboratory Data:
Laboratory Results
06/29/24 08:19
06/29/24 08:19
Laboratory Results
PT 14.0 Sec (11.4-14.6) 06/29/24 08:19
INR 1.02 06/29/24 08:19
Total Bilirubin 1.9 mg/dl (0.2-1.3) H D 06/29/24 08:19
AST 99 U/L (14-36) H 06/29/24 08:19
ALT 132 U/L (0-35) H 06/29/24 08:19
Alkaline Phosphatase 154 U/L (38-126) H 06/29/24 08:19
Lipase 204 U/L (23-300) 06/27/24 03:57
Vital Signs and I&O:
Vital Signs
Temp Pulse Resp BP Pulse Ox
98 F 76 18 158/74 100
06/29/24 16:35 06/29/24 16:35 06/29/24 16:35 06/29/24 16:35 06/29/24 16:35
I&O
06/28/24 06/29/24 06/30/24
06:59 06:59 06:59
Intake Total 600 / 600 720 / 720 200 / 200
Balance 600 / 600 720 / 720 200 / 200
Physical Exam
Physical Exam
GI: Soft, Non Distended and Non Tender
[2024-06-29 20:20] VITALS: BP 122/63
[2024-06-29] MEDS: REMERON 7.5 MG PO (21:26)
[2024-06-29] MEDS: BenGay-Like 1 APPLIC TOPICAL (21:26)
[2024-06-29] MEDS: REQUIP 3 MG PO (21:26)
[2024-06-29] MEDS: ABILIFY 2 MG PO (21:26)
[2024-06-29 23:20] VITALS: BP 126/55
[2024-06-30] VITALS (12 sets, daily range): BP systolic 120–159; BP diastolic 61–90; BMI 33.5
[2024-06-30] MEDS: ZOSYN 50 IV ×4 (01:51→23:21)
[2024-06-30 08:39] LABS: Hematocrit 35.2 % (37.0-47.0); Hemoglobin 11.4 g/dL (12.0-16.0); Mean Corp Hgb Conc. 32.4 g/dL (33.0-37.0); Mean Corpuscular Hgb 31.1 pg (27.0-31.0); Mean Corpuscular Volume 96.2 fL (81.0-99.0); Mean Platelet Volume 11.1 fL (7.4-10.4); Platelet Count 177 10^3/uL (130-400); Red Blood Cell Count 3.66 10^6/uL (4.20-5.40); Red Cell Dist. Width 13.4 % (11.5-14.5)
[2024-06-30] MEDS: LEXAPRO 10 MG PO (08:48)
[2024-06-30] MEDS: LASIX 40 MG PO ×2 (08:48→17:34)
[2024-06-30] MEDS: VESICARE 5 MG PO (08:50)
[2024-06-30] MEDS: HEPARIN SC (08:50)
[2024-06-30 09:09] LABS: ALT (SGPT) 91 U/L (0-35); AST (SGOT) 53 U/L (14-36); Albumin 3.7 g/dl (3.5-5.0); Alkaline Phosphatase 147 U/L (38-126); Blood Urea Nitrogen 11 mg/dl (7-17); Calcium 8.5 mg/dl (8.4-10.2); Carbon Dioxide 31 mmol/L (22-30); Chloride 99 mmol/L (98-107); Estimated Creatinine Clearance 56 ml/min; Glucose 90 mg/dl (70-99); Potassium 3.2 mmol/L (3.5-5.1); Sodium 139 mmol/L (135-145); Total Bilirubin 1.4 mg/dl (0.2-1.3); Total Protein 6.2 g/dl (6.3-8.2); eGFR 53.06
[2024-06-30] MEDS: KCL 40 MEQ PO (09:29)
--- NOTE | 2024-06-30 12:32 | CM ---
Chart reviewed for d/c planning. Pt for ERCP tomorrow.
No skilled rehab needs per PT/OT. Will need RW at d/c, pt has walker at home but it is broken
Plan: Home w/ RW. Will need script
--- NOTE | 2024-06-30 13:55 | W.PN.HOSP.TC ---
Today's Communication/Plan
-
for ERCP today
possible d/c today vs tomorrow
Assessment / Plan
Assessment / Plan
US abdomen
Liver is unremarkable in echotexture without evidence of focal lesion. The portal and hepatic vessels appear grossly patent.
No intra- or extrahepatic biliary ductal dilatation with the visualized portion of the common duct measuring 6 mm. No gallstones, gallbladder wall thickening, pericholecystic fluid or sonographic Vázquez's sign.
Limited visualization of the tail of the pancreas, with the visualized portion of the pancreas appearing heterogeneous, nonspecific. Spleen measures 10.2 cm in length, which is not enlarged. No free fluid in the upper abdomen.
Right kidney measures 9.0 cm, and the left kidney measures 9.4 cm in length. No hydronephrosis.
Visualized portions of the abdominal aorta and inferior vena cava appear unremarkable.
MRI abd
Gallbladder is contracted and contains multiple small gallstones. No evidence for gallbladder wall thickening or pericholecystic edema, with no findings to suggest acute cholecystitis by MRI.
Mild central intrahepatic bile duct dilation. Common hepatic duct and common bile duct measures up to 7.5 mm, in the upper range of normal.
There are however several common bile duct calculi in the inferior aspect of the common bile duct.
1 cm cyst at the posterior margin of the right lobe liver.
Multiple top normal slightly enlarged lymph nodes in the periportal and portacaval region. These are nonspecific, but statistically these are likely reactive inflammatory lymph nodes, fairly commonly seen in this region. There are small periaortic
lymph nodes, not enlarged by size criteria.
Colonic diverticula seen involving the distal descending colon and the sigmoid colon.

1. Acute transaminitis/hepatitis
Nausea/vomiting
Episode of fever
-Patient presented with acute onset of vomiting episode in the night, bilious in nature. no blood.
-ALT 1042 AST 383 ALP 204. T rochelle 2.6. Lipase WNL. -LFTs trending down rapidly
-RUQ US as above -normal bile duct. Gallbladder was not able to be visualized
-Potential different show of alcohol use related liver injury vs DILI vs billary problems
-Deferring hepatitis panel check to GI. Monoscreen is negative
-Hold home dose of rosuvastatin
-MRI/MRCP showing billiary ductal stone. see above
-for ERCP today
-Continue on empiric zosyn for billiary source of infection.
2. Elevate troponin -nonischemic myocardial injury related
h/o of CAD and RCA stenting
-Patient had episode of chest discomfort with nausea/vomit
-EKG reviewed and paced rhythm, unable to discern ST segment change
-Troponin 0.022 > 0.049 > 0.051 > 0.03
-Troponin trended down
3. Chronic diastolic HF
-No signs of exacerbation
-resume lasix 40mg/d back
4. Chronic hypotension
-continue midodrine with holding parameter.
DVT PPX - heparin subq
Full code
Anticipated Discharge: Within 24 hours
Subjective/Interval History
-
Date of Service: June 30, 2024
Denies abdominal pain/nausea
afebrile overnight
No other issues
Objective Data
-
Labs:
Laboratory Results
06/30/24
07:23
WBC 5.0
Hgb 11.4 L
Hct 35.2 L
Plt Count 177
Sodium 139
Potassium 3.2 L
Chloride 99
Carbon Dioxide 31 H
BUN 11
Creatinine 1.1 H
Glucose 90
Calcium 8.5
Total Bilirubin 1.4 H
AST 53 H
ALT 91 H
Alkaline Phosphatase 147 H
Vital Signs:
Vital Signs
Temp Pulse Resp BP Pulse Ox
98.1 F 82 18 130/70 96
06/30/24 07:24 06/30/24 08:48 06/30/24 07:24 06/30/24 08:48 06/30/24 09:55
I&O
06/29/24 06/30/24 07/01/24
06:59 06:59 06:59
Intake Total 720 / 720 440 / 440
Balance 720 / 720 440 / 440
Review of Systems
-
Respiratory: Reports No Symptoms
Cardiac: Reports No Symptoms
Abdomen/GI: Reports No Symptoms
Physical Exam
-
General: Well Developed
HEENT: Negative Oxygen
GI: Soft, Nontender and Nondistended
Neuro: Awake, Alert and No Motor Deficits
--- NOTE | 2024-06-30 14:49 | W.PN.SURGUPD ---
Surgical Update
Surgical Update
Attempted to see patient. Patient currently on the floors for ERCP.
Patient is a 73 yo F with a PMH of HTN, HLD, CAD s/p PCI with morbid obesity, RCA stent, chronic diastolic CHF, s/p pacemaker, CKD, EtOH abuse, active medical marijuana use, COPD, s/p partial thyroidectomy, s/p bilateral TKR, s/p foot bunion
surgery, s/p lower back surgery. Ms. Houston presents with epigastric abdominal/chest pain, fevers, nausea and vomiting in the setting of elevated bilirubin and LFTs. She underwent an abdominal ultrasound which was not visualized during the exam
due to questionable contracted nature. She subsequently underwent an MRI which demonstrated a contracted gallbladder containing multiple small stones without any evidence of gallbladder wall thickening or pericholecystic edema. She was found to
have common bile duct dilation with several small stones within the CBD.
Will attempt to see patient later today following ERCP. Pending timing of her recovery, she may be evaluated by surgical service tomorrow.
[2024-06-30] MEDS: HEPARIN 5000 UNITS SC (20:19)
[2024-06-30] MEDS: ABILIFY 2 MG PO (21:55)
[2024-06-30] MEDS: REMERON 7.5 MG PO (21:55)
[2024-06-30] MEDS: REQUIP 3 MG PO (21:55)
[2024-07-01 03:46] VITALS: BP 126/68
[2024-07-01] MEDS: ZOSYN 50 IV ×4 (04:22→20:04)
[2024-07-01 06:00] VITALS: BMI 34.0
[2024-07-01 08:26] LABS: Hematocrit 36.5 % (37.0-47.0); Mean Corp Hgb Conc. 32.9 g/dL (33.0-37.0); Mean Corpuscular Hgb 31.5 pg (27.0-31.0); Mean Corpuscular Volume 95.8 fL (81.0-99.0); Mean Platelet Volume 10.6 fL (7.4-10.4); Platelet Count 185 10^3/uL (130-400); Red Blood Cell Count 3.81 10^6/uL (4.20-5.40); Red Cell Dist. Width 13.2 % (11.5-14.5); White Blood Cell Count 4.8 10^3/uL (4.8-10.8)
[2024-07-01 08:34] VITALS: BP 128/68
[2024-07-01] MEDS: VESICARE 5 MG PO (08:49)
[2024-07-01] MEDS: LEXAPRO 10 MG PO (08:49)
[2024-07-01] MEDS: LASIX 40 MG PO ×2 (08:50→15:36)
[2024-07-01 08:52] LABS: ALT (SGPT) 90 U/L (0-35); AST (SGOT) 69 U/L (14-36); Albumin 3.8 g/dl (3.5-5.0); Alkaline Phosphatase 221 U/L (38-126); Blood Urea Nitrogen 15 mg/dl (7-17); Calcium 8.8 mg/dl (8.4-10.2); Carbon Dioxide 26 mmol/L (22-30); Chloride 99 mmol/L (98-107); Estimated Creatinine Clearance 48 ml/min; Glucose 123 mg/dl (70-99); Potassium 3.6 mmol/L (3.5-5.1); Sodium 137 mmol/L (135-145); Total Bilirubin 1.3 mg/dl (0.2-1.3); Total Protein 6.5 g/dl (6.3-8.2); eGFR 43.42
--- NOTE | 2024-07-01 09:47 | W.PN.GI.CBS2 ---
Today's Communication / Plan
-
Trend LFTs. General Surgery consult for lap traci. Outpatient f/u to discuss biopsies and eventual colonoscopy.
Assessment / Plan
-
73yo with hx CAD with prior MD with prior stenting, CHF, pacer, COPD, HTN, hypercholesterolemia, anxiety/depression, arthritis, neuropathy- ETOH related, prior heavy ETOH use now social ETOH use admitted with chest pain and vomiting found to be
febrile with elevated LFTs, imaging demonstrated choledocholithiasis.
She is now s/p ERCP with sphincterotomy and balloon extraction and doing well. Mild bump in her LFTs but patient asymptomatic. General surgery consulted, unable to see patient yesterday as she was in her ERCP.
A/P:
Continue to trend LFTs-- suspect mild bump due to manipulation during ERCP
Surgery consult for lap traci- inpatient vs. outpatient (will defer to surgery)
Advance diet as tolerated, once plan is determined by surgery
Biopsies taken of semi-pedunculated subepithelial nodule in the duodenum, incidentally noted during exam yesterday, path is pending. Will contact patient once these have resulted and discuss any necessary next steps.
Reported some rectal bleeding on admission, recommend outpatient follow-up for colonoscopy (none prior). Will arrange for office follow-up on discharge.
GI will sign off, please call with questions.
Subjective
Subjective
Date of Service: July 01, 2024
Patient is status post ERCP with sphincterotomy and balloon extraction of multiple small black stones and debris, no pus. Incidentally noted was a large semi-pedunculated subepithelial nodule in the 2nd portion of the duodenum, which was biopsied.
Currently, she feels well, mild increase in LFTs this morning.
Objective
Data Reviewed
Laboratory Data:
Laboratory Results
07/01/24 08:12
07/01/24 08:12
Laboratory Results
PT 14.0 Sec (11.4-14.6) 06/29/24 08:19
INR 1.02 06/29/24 08:19
Total Bilirubin 1.3 mg/dl (0.2-1.3) 07/01/24 08:12
AST 69 U/L (14-36) H 07/01/24 08:12
ALT 90 U/L (0-35) H 07/01/24 08:12
Alkaline Phosphatase 221 U/L (38-126) H 07/01/24 08:12
Lipase 204 U/L (23-300) 06/27/24 03:57
Vital Signs and I&O:
Vital Signs
Temp Pulse Resp BP Pulse Ox
97.5 F 86 18 128/68 97
07/01/24 08:34 07/01/24 08:49 07/01/24 08:34 07/01/24 08:49 07/01/24 08:34
I&O
06/30/24 07/01/24 07/02/24
06:59 06:59 06:59
Intake Total 440 / 440 50 / 50
Balance 440 / 440 50 / 50
Physical Exam
Physical Exam
GI: Soft, Non Distended, Non Tender and Normal Bowel Sounds
--- NOTE | 2024-07-01 09:50 | CON.GS ---
Medical History
-
Chief Complaint: abdominal pain
History of Present Illness:
73 yo female with a h/o CAD, [place] with stents, CHF, PPM, and COPD who presented for abdominal pain with workup demonstrating cholelithiasis without cholecystitis and choledocholithiasis. She is now post procedure day one ERCP for removal of
stones/sphincterotomy with biopsies taken of semi-pedunculated subepithelial nodule in the duodenum. She is currently without any residual abdominal pain. She denies nausea and vomiting. She has an appetite this morning and would like to eat. On
exam, the abdomen is not tender or distended.
Past Medical History
Past Medical History: CAD, CHF, COPD, HTN, Hypercholesterolemia, [place] and Other (arthritis, neuropathy, venous stasis, obesity)
Past Surgical History: Cardiac (stents, ppm), Orthopedic ((b/l TKR, foot bunion surgery, low back surgery ) and Other (thyroid polyp removal)
Social History
Tobacco: Smoker (cigarettes from [age], now vapes)
Alcohol: Occasional
Drug: Marijuana
Family History
Family History: Reviewed & Not Pertinent
Allergies / Home Medications
Allergy/AdvReac Type Severity Reaction Status Date / Time
No Known Allergies Allergy Verified 06/27/24 03:53
�Medication �Instructions �Recorded �Confirmed �Type
magnesium oxide 400 mg PO HS Supplement 09/07/21 06/27/24 History
acetaminophen 500 mg tablet 1,000 mg PO BID Pain 01/15/22 06/27/24 History
midodrine 5 mg tablet 5 mg PO BID Blood pressure 01/15/22 06/27/24 History
mirtazapine 7.5 mg tablet 7.5 mg PO HS Depression 01/15/22 06/27/24 History
solifenacin 5 mg tablet (Vesicare) 5 mg PO DAILY Urinary issue 10/21/22 06/27/24 History
turmeric 400 mg capsule 400 mg PO DAILY Supplement 10/21/22 06/27/24 History
melatonin 10 mg tablet 10 mg PO HS Sleep 09/20/23 06/27/24 History
potassium gluconate 550 mg (90 mg) 550 mg PO DAILY Supplement ##0 09/20/23 06/27/24 History
tablet
ropinirole 3 mg tablet 3 mg PO HS Neurological Condition 09/20/23 06/27/24 History
rosuvastatin 20 mg tablet 20 mg PO HS High Cholesterol 09/20/23 06/27/24 History
aripiprazole 2 mg tablet 2 mg PO HS Mental Health/Anxiety 09/21/23 06/27/24 Rx
#30 tabs
aspirin 81 mg tablet,delayed 81 mg PO DAILY Blood Clot 09/21/23 06/27/24 Rx
release Prevention/Tx #30 tabs
escitalopram oxalate 10 mg tablet 10 mg PO DAILY Mental Health #30 09/21/23 06/27/24 Rx
tabs
furosemide 40 mg tablet 40 mg PO BID Fluid 09/21/23 06/27/24 Rx
retention/Swelling #30 tabs
semaglutide (weight loss) 2.4 2.4 mg SC TU 06/27/24 06/27/24 History
mg/0.75 mL subcutaneous pen
injector (Wegovy)
Review of Systems
-
History Source: Patient
All other systems: Negative unless noted
A 10 point review of systems was completed, and was negative except as per HPI.
Physical Exam
Vital Signs
Temp Pulse Resp BP Pulse Ox
97.5 F 86 18 128/68 97
07/01/24 08:34 07/01/24 08:49 07/01/24 08:34 07/01/24 08:49 07/01/24 08:34
06/30/24 07/01/24 07/02/24
06:59 06:59 06:59
Actual Weight 100.017 kg 101.35 kg
Body Mass Index (BMI) 34.0
Lab Results
07/01/24 08:12
07/01/24 08:12
WBC 4.8 10^3/uL (4.8-10.8) 07/01/24 08:12
Hgb 12.0 g/dL (12.0-16.0) 07/01/24 08:12
Hct 36.5 % (37.0-47.0) L 07/01/24 08:12
Plt Count 185 10^3/uL (130-400) 07/01/24 08:12
Abs Immat Gran (auto) 0.0 10^3/uL (0-0.05) 06/27/24 03:57
Neutrophils % 87.6 % (42.2-75.2) H 06/27/24 03:57
Physical Exam
General: Well Developed and Well Nourished
HEENT: Normocephalic and Moist Mucous Membranes
GI: Soft, Non Tender, Non Distended and Obese
Skin: Warm and Dry
Neuro: Awake, Alert and AO x 3
Psych: Calm
Data Reviewed
-
Ultrasound: Report Reviewed by me, Discussed with Physician and Discussed with Patient
MRI: Image Personally Visualized and interpreted, Report Reviewed by me, Discussed with Physician and Discussed with Patient
Labs: Labs Reviewed by me, Discussed with Physician and Discussed with Patient
Old Records: Reviewed
Assessment / Plan
-
73 yo female with a h/o CAD, [place] with stents, CHF, PPM, and COPD who presented for abdominal pain with workup demonstrating cholelithiasis without cholecystitis and choledocholithiasis. She is now post procedure day one ERCP for removal of
stones/sphincterotomy with biopsies taken of semi-pedunculated subepithelial nodule in the duodenum. LFT's elevated on presentation and now trending down. No leukocytosis. Surgery is consulted for laparoscopic cholecystectomy to prevent future
recurrence. AFVSS
Discussed surgical intervention with patient to prevent recurrence. Offered as inpatient during this course of stay or planned as outpatient procedure after biopsy results from duodenum in case path abnormal. She initially was opting to schedule as
outpatient, but on reconsideration would like to have this done during this admission.
--Ok for LFD over the weekend
--NPO after MN wednesday for OR for lap traci
--- NOTE | 2024-07-01 13:53 | W.PN.HOSP.TC ---
Today's Communication/Plan
-
continue abx
lap traci on mon
Assessment / Plan
Assessment / Plan
US abdomen
Liver is unremarkable in echotexture without evidence of focal lesion. The portal and hepatic vessels appear grossly patent.
No intra- or extrahepatic biliary ductal dilatation with the visualized portion of the common duct measuring 6 mm. No gallstones, gallbladder wall thickening, pericholecystic fluid or sonographic Vázquez's sign.
Limited visualization of the tail of the pancreas, with the visualized portion of the pancreas appearing heterogeneous, nonspecific. Spleen measures 10.2 cm in length, which is not enlarged. No free fluid in the upper abdomen.
Right kidney measures 9.0 cm, and the left kidney measures 9.4 cm in length. No hydronephrosis.
Visualized portions of the abdominal aorta and inferior vena cava appear unremarkable.
MRI abdomen
Gallbladder is contracted and contains multiple small gallstones. No evidence for gallbladder wall thickening or pericholecystic edema, with no findings to suggest acute cholecystitis by MRI.
Mild central intrahepatic bile duct dilation. Common hepatic duct and common bile duct measures up to 7.5 mm, in the upper range of normal.
There are however several common bile duct calculi in the inferior aspect of the common bile duct.
1 cm cyst at the posterior margin of the right lobe liver.
Multiple top normal slightly enlarged lymph nodes in the periportal and portacaval region. These are nonspecific, but statistically these are likely reactive inflammatory lymph nodes, fairly commonly seen in this region. There are small periaortic
lymph nodes, not enlarged by size criteria.
Colonic diverticula seen involving the distal descending colon and the sigmoid colon.

1. Acute transaminitis/hepatitis
Nausea/vomiting
Episode of fever
-Patient presented with acute onset of vomiting episode in the night, bilious in nature. no blood.
-ALT 1042 AST 383 ALP 204. T rochelle 2.6. Lipase WNL. -LFTs trending down rapidly
-RUQ US as above -normal bile duct. Gallbladder was not able to be visualized
-Potential different show of alcohol use related liver injury vs DILI vs biliary problems
-Deferring hepatitis panel check to GI. [place]-screen is negative
-Hold home dose of rosuvastatin
-MRI/MRCP showing biliary ductal stone. see above
-s/p ERCP -stone extraction, duodenal lesion which was biopsied
-General Surgery involved in patient planning to be taken to the OR for lap traci on wednesday
-Continue on empiric Zosyn for biliary source of infection.
2. Duodenal lesion
-Incidentally found on EGD, biopsy done pathology report pending
2. Elevate troponin -nonischemic myocardial injury related
h/o of CAD and RCA stenting
-Patient had episode of chest discomfort with nausea/vomit
-EKG reviewed and paced rhythm, unable to discern ST segment change
-Troponin 0.022 > 0.049 > 0.051 > 0.03
-Troponin trended down
3. Chronic diastolic HF
-No signs of exacerbation
-resume Lasix 40mg/d back
4. Chronic hypotension
-continue midodrine with holding parameter.
5. Hypokalemia
-Replace as needed
6. Hyponatremia- resolved
DVT PPX - heparin subq
Full code
Anticipated Discharge: 24 - 48 hours
Subjective/Interval History
-
Date of Service: July 01, 2024
no abd pain/nausea/vomiting
Afebrile
Objective Data
-
Labs:
Laboratory Results
07/01/24
08:12
WBC 4.8
Hgb 12.0
Hct 36.5 L
Plt Count 185
Sodium 137
Potassium 3.6
Chloride 99
Carbon Dioxide 26
BUN 15
Creatinine 1.3 H
Glucose 123 H
Calcium 8.8
Total Bilirubin 1.3
AST 69 H
ALT 90 H
Alkaline Phosphatase 221 H
Vital Signs:
Vital Signs
Temp Pulse Resp BP Pulse Ox
97.5 F 86 18 128/68 97
07/01/24 08:34 07/01/24 08:49 07/01/24 08:34 07/01/24 08:49 07/01/24 10:05
I&O
06/30/24 07/01/24 07/02/24
06:59 06:59 06:59
Intake Total 440 / 440 50 / 50
Balance 440 / 440 50 / 50
Review of Systems
-
Respiratory: Reports No Symptoms
Cardiac: Reports No Symptoms
Abdomen/GI: Reports No Symptoms
Physical Exam
-
General: Well Developed
HEENT: Negative Oxygen
GI: Soft, Nontender and Nondistended
Neuro: Awake, Alert and No Motor Deficits
--- NOTE | 2024-07-01 14:35 | CM ---
Chart reviewed and patient is for possible lap traci on Wednesday.
Plan; Home after procedure.
--- NOTE | 2024-07-01 15:38 | PTCARENOTE ---
Assumed care of patient at 3pm. No note changes in assessment. Plan of care ongoing.
[2024-07-01 15:53] VITALS: BP 114/49
[2024-07-01 19:40] VITALS: BP 124/57
[2024-07-01] MEDS: HEPARIN 5000 UNITS SC (20:03)
[2024-07-01] MEDS: REQUIP 3 MG PO (21:29)
[2024-07-01] MEDS: REMERON 7.5 MG PO (21:29)
[2024-07-01] MEDS: ABILIFY 2 MG PO (21:29)
[2024-07-01 23:47] VITALS: BP 112/64
[2024-07-01] MEDS: BenGay-Like 1 APPLIC TOPICAL (23:48)
[2024-07-02] MEDS: ZOSYN 50 IV ×4 (01:37→20:37)
[2024-07-02 06:00] VITALS: BMI 34.1
[2024-07-02 07:50] VITALS: BP 138/78
[2024-07-02] MEDS: LEXAPRO 10 MG PO (09:48)
[2024-07-02] MEDS: VESICARE 5 MG PO (09:48)
[2024-07-02] MEDS: LASIX 40 MG PO ×2 (09:48→15:25)
[2024-07-02] MEDS: HEPARIN 5000 UNITS SC ×2 (09:49→20:40)
--- NOTE | 2024-07-02 10:11 | W.PN.GS2 ---
Today's Communication / Plan
-
NPO after MN for OR
Assessment / Plan
-
73 yo female with a h/o CAD, [place] with stents, CHF, PPM, and COPD who presented for abdominal pain with workup demonstrating cholelithiasis without cholecystitis and choledocholithiasis.
PPD #2 ERCP for removal of stones/sphincterotomy with biopsies taken of semi-pedunculated subepithelial nodule in the duodenum (path pending)
LFT's elevated on presentation then trending down s/p ERCP
AFVSS
Discussed surgical intervention with patient to prevent recurrence, tentative OR tomorrow for laparoscopic cholecystectomy
--Ok for LFD today, NPO after MN
--On Zosyn currently
Subjective Data
-
Date of Service: July 02, 2024
Patient seen and examined at bedside with Dr. Zhong. Denies N/V. Tolerating LFD. Denies pain.
Objective Data
-
Intake and Output
07/01/24 07/02/24 07/03/24
06:59 06:59 06:59
Intake Total 50 / 50 0 / 0 240 / 240
Balance 50 / 50 0 / 0 240 / 240
Intake:
Oral fluids 0 / 0 240 / 240
IV fluids (Total) 50 / 50
nss 50 / 50
Other:
Number of approximated MODERATE 1
amounts of urine
Number of approximated LARGE 2
amounts of urine
Vital Signs
Temp Pulse Resp BP Pulse Ox
97.7 F 89 18 138/78 98
07/02/24 07:50 07/02/24 07:50 07/02/24 07:50 07/02/24 07:50 07/02/24 07:50
Lab Results
07/01/24 08:12
07/01/24 08:12
Calcium 8.8 mg/dl (8.4-10.2) 07/01/24 08:12
Total Bilirubin 1.3 mg/dl (0.2-1.3) 07/01/24 08:12
AST 69 U/L (14-36) H 07/01/24 08:12
ALT 90 U/L (0-35) H 07/01/24 08:12
Alkaline Phosphatase 221 U/L (38-126) H 07/01/24 08:12
Total Protein 6.5 g/dl (6.3-8.2) 07/01/24 08:12
Albumin 3.8 g/dl (3.5-5.0) 07/01/24 08:12
Physical Exam
-
NAD
ABD soft, nd, nt
--- NOTE | 2024-07-02 12:54 | W.PN.HOSP.TC ---
Today's Communication/Plan
-
for lap traci tomorrow
labs in AM
continue zosyn till lap traci
Assessment / Plan
Assessment / Plan
US abdomen
Liver is unremarkable in echotexture without evidence of focal lesion. The portal and hepatic vessels appear grossly patent.
No intra- or extrahepatic biliary ductal dilatation with the visualized portion of the common duct measuring 6 mm. No gallstones, gallbladder wall thickening, pericholecystic fluid or sonographic Vázquez's sign.
Limited visualization of the tail of the pancreas, with the visualized portion of the pancreas appearing heterogeneous, nonspecific. Spleen measures 10.2 cm in length, which is not enlarged. No free fluid in the upper abdomen.
Right kidney measures 9.0 cm, and the left kidney measures 9.4 cm in length. No hydronephrosis.
Visualized portions of the abdominal aorta and inferior vena cava appear unremarkable.
MRI abdomen
Gallbladder is contracted and contains multiple small gallstones. No evidence for gallbladder wall thickening or pericholecystic edema, with no findings to suggest acute cholecystitis by MRI.
Mild central intrahepatic bile duct dilation. Common hepatic duct and common bile duct measures up to 7.5 mm, in the upper range of normal.
There are however several common bile duct calculi in the inferior aspect of the common bile duct.
1 cm cyst at the posterior margin of the right lobe liver.
Multiple top normal slightly enlarged lymph nodes in the periportal and portacaval region. These are nonspecific, but statistically these are likely reactive inflammatory lymph nodes, fairly commonly seen in this region. There are small periaortic
lymph nodes, not enlarged by size criteria.
Colonic diverticula seen involving the distal descending colon and the sigmoid colon.

1. Acute transaminitis/hepatitis
Nausea/vomiting
Episode of fever
-Patient presented with acute onset of vomiting episode in the night, bilious in nature. no blood.
-ALT 1042 AST 383 ALP 204. T rochelle 2.6. Lipase WNL. -LFTs trending down rapidly
-RUQ US as above -normal bile duct. Gallbladder was not able to be visualized
-Potential different show of alcohol use related liver injury vs DILI vs biliary problems
-Deferring hepatitis panel check to GI. Monona-screen is negative
-Hold home dose of rosuvastatin
-MRI/MRCP showing biliary ductal stone. see above
-s/p ERCP -stone extraction, duodenal lesion which was biopsied
-General Surgery involved in patient planning to be taken to the OR for lap traci on wednesday
-Continue on empiric Zosyn for biliary source of infection.
2. Duodenal lesion
-Incidentally found on EGD, biopsy done pathology report pending
2. Elevate troponin -nonischemic myocardial injury related
h/o of CAD and RCA stenting
-Patient had episode of chest discomfort with nausea/vomit
-EKG reviewed and paced rhythm, unable to discern ST segment change
-Troponin 0.022 > 0.049 > 0.051 > 0.03
-Troponin trended down
3. Chronic diastolic HF
-No signs of exacerbation
-resume Lasix 40mg/d back
4. Chronic hypotension
-continue midodrine with holding parameter.
5. Hypokalemia
-Replace as needed
6. Hyponatremia- resolved
7. Diarrhea
-From Zosyn use. can d/c post lap traci.
DVT PPX - heparin subq
Full code
Anticipated Discharge: 24 - 48 hours
Subjective/Interval History
-
Date of Service: July 02, 2024
Some reported diarrhea
No abdominal pain/fever
Objective Data
-
Vital Signs:
Vital Signs
Temp Pulse Resp BP Pulse Ox
97.7 F 89 18 138/78 98
07/02/24 07:50 07/02/24 07:50 07/02/24 07:50 07/02/24 07:50 07/02/24 07:50
I&O
07/01/24 07/02/24 07/03/24
06:59 06:59 06:59
Intake Total 50 / 50 0 / 0 240 / 240
Balance 50 / 50 0 / 0 240 / 240
Review of Systems
-
Respiratory: Reports No Symptoms
Cardiac: Reports No Symptoms
Abdomen/GI: Reports Diarrhea; Denies Abdominal Pain
Physical Exam
-
General: Well Developed
HEENT: Negative Oxygen
GI: Soft, Nontender and Nondistended
Neuro: Awake, Alert and No Motor Deficits
[2024-07-02 15:55] VITALS: BP 171/74
[2024-07-02] MEDS: REMERON 7.5 MG PO (20:38)
[2024-07-02] MEDS: REQUIP 3 MG PO (20:39)
[2024-07-02] MEDS: ABILIFY 2 MG PO (20:40)
[2024-07-02] MEDS: BenGay-Like 1 APPLIC TOPICAL (20:42)
[2024-07-02 23:41] VITALS: BP 124/63
[2024-07-03] VITALS (14 sets, daily range): BP systolic 0–149; BP diastolic 44–63; PULSE 64; BMI 33.9
[2024-07-03] MEDS: ZOSYN 50 IV ×3 (01:41→13:39)
[2024-07-03 07:57] LABS: Hematocrit 36.7 % (37.0-47.0); Hemoglobin 11.5 g/dL (12.0-16.0); Mean Corp Hgb Conc. 31.3 g/dL (33.0-37.0); Mean Corpuscular Hgb 31.1 pg (27.0-31.0); Mean Corpuscular Volume 99.2 fL (81.0-99.0); Mean Platelet Volume 11.3 fL (7.4-10.4); Platelet Count 201 10^3/uL (130-400); Red Cell Dist. Width 13.8 % (11.5-14.5); White Blood Cell Count 5.7 10^3/uL (4.8-10.8)
[2024-07-03] MEDS: HEPARIN 5000 UNITS SC ×2 (08:05→20:24)
[2024-07-03] MEDS: VESICARE 5 MG PO (08:06)
[2024-07-03] MEDS: LASIX 40 MG PO ×2 (08:07→16:34)
[2024-07-03] MEDS: LEXAPRO 10 MG PO (08:08)
--- NOTE | 2024-07-03 08:18 | W.SUR.PREOP ---
Pre-Operative Surgical Note
-
I have examined this patient prior to the performance of the scheduled procedure.
The patient's condition is unchanged from the time of the current History and
Physical and the patient is able to undergo the scheduled procedure.
[2024-07-03 08:19] LABS: ALT (SGPT) 49 U/L (0-35); AST (SGOT) 30 U/L (14-36); Alkaline Phosphatase 155 U/L (38-126); Blood Urea Nitrogen 22 mg/dl (7-17); Calcium 9.2 mg/dl (8.4-10.2); Carbon Dioxide 32 mmol/L (22-30); Chloride 97 mmol/L (98-107); Estimated Creatinine Clearance 52 ml/min; Glucose 96 mg/dl (70-99); Sodium 139 mmol/L (135-145); Total Bilirubin 0.7 mg/dl (0.2-1.3); Total Protein 6.7 g/dl (6.3-8.2)
--- NOTE | 2024-07-03 10:35 | PTOTSP ---
Please place updated PT orders postop to allow resumption of PT services. Thank you.
--- NOTE | 2024-07-03 11:07 | W.IMMPOSTOP ---
Surgical Immed Post Op Note
-
Primary Surgeon: Blayne Layne MD
Assisting Surgeon: None
Pre-op Diagnosis: Choledocholithiasis, cholelithiasis
Post-op Diagnosis: Choledocholithiasis, cholelithiasis, chronic cholecystitis
Procedure Performed: Laparoscopic cholecystectomy with cholangiogram
Anesthesia Type: General
Specimen / Cultures: Gallbladder and contents
Estimated Blood Loss: 17 cc
Complications: None
Operative Findings: Contracted, chronically inflamed gallbladder with dense periduodenal fat adhesions over the fundus. These were carefully lysed with sharp blunt and electrocautery dissection. The duodenum was freed from the gallbladder and
protected the entire case. Due to the scar tissue in the cystic triangle and unclear anatomy we elected to do a top-down cholecystectomy. We did enter the gallbladder and removed all pigmented stones, we were able to get back external to the
gallbladder around the cystic duct after a large distal stone was removed. Cholangiogram was performed through this which demonstrated dilated biliary anatomy but otherwise no filling defects and free flow of contrast into the duodenum. Cuff of
the cystic duct was ligated with a 0 PDS Endoloop. There was no backflow of bile. Two 5 mm clips were placed adjacent to this to ligate the cystic artery. Surgiflo was placed in the surgical bed to ensure hemostasis. A 19 Malagasy round Gerardo
drain was introduced through the right lateralmost port, laid across our surgical field and secured to the skin with a 2-0 nylon suture.
POST OP PLAN:
Imaging: None
Labs: Routine AM
Diet: Advance to Regular as tolerated
Analgesia: Tylenol 650mg q6 Janna, Florecita 5mg q6 PRN, Dilaudid 0.5mg q2h PRN
Neuro/vascular checks: q4h
AC/AP: Hold Therapeutic AC, Ok for DVT PPx
Activity: Ad Britni
Wound/Incisions/Drains: Routine, anticipate to drain removal prior to discharge pending clinical course.
Abx: None
Dispo: RNF, anticipate discharge home tomorrow versus Wednesday pending clinical course.
--- NOTE | 2024-07-03 11:14 | OR.RPT ---
Operative Report
Operative Report
Patient Name: Bekah Houston
: 1950
Date of Operation: 07/03/2024
Preoperative Diagnosis: Choledocholithiasis, cholelithiasis
Postoperative Diagnosis: Choledocholithiasis, cholelithiasis, chronic cholecystitis
Procedure(s):
Laparoscopic Cholecystectomy with Cholangiogram
Surgeon(s):
Dr. Layne
Bail Attacher(s):
JULIANNE Carr
Anesthesia: General
Estimated Blood Loss: 17 cc
Urine Output: None
Drains/Lines/Implants: 19 British round Gerardo drain
Specimens:
1. Gallbladder and contents
HPI/Surgical Indications:
This is a 73-year-old female who presented to our hospital last week with abdominal pain eventually found to have choledocholithiasis and underwent successful ERCP on 07/01/2024. General surgery was consulted for interval cholecystectomy.
Risks/Benefits/Alternatives were discussed at length, and the patient agreed to proceed with surgery.
Operative Findings: Contracted, chronically inflamed gallbladder with dense periduodenal fat adhesions over the fundus. These were carefully lysed with sharp blunt and electrocautery dissection. The duodenum was freed from the gallbladder and
protected the entire case. Due to the scar tissue in the cystic triangle and unclear anatomy we elected to do a top-down cholecystectomy. We did enter the gallbladder and removed all pigmented stones, we were able to get back external to the
gallbladder around the cystic duct after a large distal stone was removed. Cholangiogram was performed through this which demonstrated dilated biliary anatomy but otherwise no filling defects and free flow of contrast into the duodenum. Cuff of
the cystic duct was ligated with a 0 PDS Endoloop. There was no backflow of bile. Two 5 mm clips were placed adjacent to this to ligate the cystic artery. Surgiflo was placed in the surgical bed to ensure hemostasis. A 19 British round Gerardo
drain was introduced through the right lateralmost port, laid across our surgical field and secured to the skin with a 2-0 nylon suture.
Procedure Description:
The patient was brought to the Operating Room and placed in the supine position with one arm tucked. Following uneventful induction of general endotracheal anesthesia, an orogastric tube was placed. The abdomen was prepped and draped in the usual
sterile fashion. A timeout was performed confirming the procedure, consent, and that IV antibiotics were infused and sequential compression devices were confirmed to be on. The abdomen was entered using a left subcostal Veress technique which
required a single pass followed by a 5 mm right upper quadrant Optiview trocar. Pneumoperitoneum to 15 mmHg pressure was obtained without difficulty and we confirmed that no injury had occurred during our entry. The patient was positioned in
reverse Trendelenberg and rotated with the right side up slightly. Two 5 mm trocars were then placed along the right subcostal margin, followed by a 12 mm port in the epigastrium. The gallbladder was not readily visualized but there was a area of
periduodenal fat scarred up over part of the liver which was assumed to be the gallbladder fundus. There were also adhesions from the duodenum to the tissues in this area. All of these tissues were lysed sharply, bluntly or with electrocautery
dissection to free off and expose the true gallbladder. As the gallbladder was fairly contracted no locking grasper could be placed on the fundus so a laparoscopic Kitner was used to elevate the liver to provide exposure for dissection. Using
appropriate grasping instruments, the peritoneum overlying the triangle of Calot was incised and extended superiorly on both the anterior and posterior gallbladder bowles. Unfortunately, the planes were fairly chronically scarred and difficult to
visualize, given the somewhat abnormal anatomy we elected to switch to a top-down approach. A 4 x 4 Ray-Vinod was placed at the base of the dissection to help catch any spillage of bile or stones. The gallbladder was entered and black pigmented
stones were visualized, these were all individually removed carefully without spillage. The gallbladder was then dissected down towards the infundibulum where an additional stone was identified and removed. We were then able to get back external
to the gallbladder and isolate the cystic duct which had brisk backflow of bile. The duct was cannulated with cholangiocatheter on an Yates clamp was inserted into the cystic duct. A C-arm was draped and brought into the field. An intra-operative
cholangiogram was performed and was noted to have:
No filling defects in the biliary tree
+Significant biliary dilation, as expected given her choledocholithiasis and findings on ERCP.
Brisk flow of contrast into the duodenum
Normal biliary anatomy
The catheter was then removed and the cystic duct was controlled with a 0 PDS Endoloop. While securing this, the loop did cut through some of the surrounding fatty tissue on the duct which did cause some bleeding thought to be from the stump of the
cystic artery, this was clipped with two 5 mm titanium clips with good hemostasis. There was no backflow of bile. The specimen along with the Ray-Vinod were removed using an Endo Catch bag. Surgiflo, a hemostatic agent was placed in the surgical
field to ensure hemostasis. After irrigating and suctioning the surgical field until it was clear and confirming no bile leak, a 19 British round Gerardo drain was introduced through the right lateralmost port and placed across our field. This was
secured at the skin with a 2-0 nylon suture. The 12 mm trocar site was closed using 0 PDS suture. All remaining trocars were then removed and the pneumoperitoneum was evacuated. All trocar sites were closed at the skin level using 4-0 Monocryl
followed by Dermabond. Overall, the patient tolerated the procedure well and was taken to the Recovery Room postoperatively in stable condition.
I was the attending physician and performed the procedure with assistance from the TRANSIT PROOF MACHINE OPERATOR above. I was present for all portions of the case, excluding skin closure.
Blayne Layne MD
--- NOTE | 2024-07-03 14:00 | PTCARENOTE ---
1300 Received patient from PACU AAOx3. VSS, HRR apically, Lungs clear, Abdominal lap site intact with surgical glue. Right abdomen LOYD site intact. Pt offered no complaints. Made patient comfortable. Cont to assess patient status.
--- NOTE | 2024-07-03 14:13 | W.PN.HOSP.TC ---
Today's Communication/Plan
-
stop Abx
diet per GS
pt/ot
dc planning in 24 hours
Assessment / Plan
Assessment / Plan
US abdomen
Liver is unremarkable in echotexture without evidence of focal lesion. The portal and hepatic vessels appear grossly patent.
No intra- or extrahepatic biliary ductal dilatation with the visualized portion of the common duct measuring 6 mm. No gallstones, gallbladder wall thickening, pericholecystic fluid or sonographic Vázquez's sign.
Limited visualization of the tail of the pancreas, with the visualized portion of the pancreas appearing heterogeneous, nonspecific. Spleen measures 10.2 cm in length, which is not enlarged. No free fluid in the upper abdomen.
Right kidney measures 9.0 cm, and the left kidney measures 9.4 cm in length. No hydronephrosis.
Visualized portions of the abdominal aorta and inferior vena cava appear unremarkable.
MRI abdomen
Gallbladder is contracted and contains multiple small gallstones. No evidence for gallbladder wall thickening or pericholecystic edema, with no findings to suggest acute cholecystitis by MRI.
Mild central intrahepatic bile duct dilation. Common hepatic duct and common bile duct measures up to 7.5 mm, in the upper range of normal.
There are however several common bile duct calculi in the inferior aspect of the common bile duct.
1 cm cyst at the posterior margin of the right lobe liver.
Multiple top normal slightly enlarged lymph nodes in the periportal and portacaval region. These are nonspecific, but statistically these are likely reactive inflammatory lymph nodes, fairly commonly seen in this region. There are small periaortic
lymph nodes, not enlarged by size criteria.
Colonic diverticula seen involving the distal descending colon and the sigmoid colon.
Assessment:
Acute transaminitis/hepatitis
- MRI: Mild central intrahepatic bile duct dilation. Common hepatic duct and common bile duct measures up to 7.5 mm, in the upper range of normal. several common bile duct calculi in the inferior aspect of the common bile duct.
- GI consulted; s/p ERCP 06/30/24
- GS consulted; s/p lap traci 07/03/24 with indwelling drain
- complete IV Abx x 7 days
- LFTs improving
Duodenal lesion
- Incidentally found on EGD, biopsy done pathology report pending. OP GI f/u
Elevated troponin - nonischemic myocardial injury related
h/o of CAD and RCA stenting
- Troponin 0.022 > 0.049 > 0.051 > 0.03
Chronic diastolic HF
- No signs of exacerbation
- continue Lasix 40mg daily
Chronic hypotension
- continue midodrine with holding parameter.
Hypokalemia
- Replace as needed
Hyponatremia - resolved
Diarrhea
- Abx associated
DVT ppx: SC Heparin
Code: Full
Anticipated Discharge: > 48 hours
Subjective/Interval History
-
Date of Service: July 03, 2024
s/p lap traci this AM
Objective Data
-
Labs:
Laboratory Results
07/03/24
06:59
WBC 5.7
Hgb 11.5 L
Hct 36.7 L
Plt Count 201
Sodium 139
Potassium 4.0
Chloride 97 L
Carbon Dioxide 32 H
BUN 22 H
Creatinine 1.2 H
Glucose 96
Calcium 9.2
Total Bilirubin 0.7
AST 30
ALT 49 H
Alkaline Phosphatase 155 H
Vital Signs:
Vital Signs
Temp Pulse Resp BP Pulse Ox
98.1 F 62 20 142/57 97
07/03/24 12:50 07/03/24 12:50 07/03/24 12:50 07/03/24 12:50 07/03/24 12:50
I&O
07/02/24 07/03/24 07/04/24
06:59 06:59 06:59
Intake Total 0 / 0 1779 50 / 50
Output Total 0 / 0
Balance 0 / 0 1779 50 / 50
Physical Exam
-
General: No Apparent Distress
HEENT: Normocephalic and Atraumatic
Respiratory: Negative Wheezes
Cardiac: Regular Rhythm and S1/S2
GI: Soft
Genito-urinary: No Costovertebral Tender
Musculoskeletal: No Edema
Neuro: AO x 3
Psych: Calm
Data Reviewed
-
Total Time Spent with Patient (in minutes): 42
Labs: Labs Reviewed by me
[2024-07-03] MEDS: DILAUDID 0.5 MG IV (17:45)
[2024-07-03] MEDS: REQUIP 3 MG PO (20:25)
[2024-07-03] MEDS: ABILIFY 2 MG PO (20:27)
[2024-07-03] MEDS: REMERON 7.5 MG PO (20:27)
[2024-07-03] MEDS: BenGay-Like 1 APPLIC TOPICAL (20:28)
[2024-07-03] MEDS: TIGAN 200 MG IM (23:08)
--- NOTE | 2024-07-04 01:09 | PTCARENOTE ---
pt with several episodes of diarrhea and hogan color emesis. pt is afebrile and all other VSS at this time. PRN IM tigan injection given for nausea. MAINTENANCE CLERK made aware, stool cx sent for cdiff and norovirus. will continue to monitor patient closely.
[2024-07-04] MEDS: DILAUDID 0.5 MG IV (03:35)
[2024-07-04 07:40] VITALS: BP 115/54
[2024-07-04 08:04] LABS: Hematocrit 34.9 % (37.0-47.0); Hemoglobin 11.5 g/dL (12.0-16.0); Mean Corpuscular Hgb 31.9 pg (27.0-31.0); Mean Corpuscular Volume 96.7 fL (81.0-99.0); Mean Platelet Volume 11.2 fL (7.4-10.4); Platelet Count 195 10^3/uL (130-400); Red Blood Cell Count 3.61 10^6/uL (4.20-5.40); White Blood Cell Count 9.1 10^3/uL (4.8-10.8)
--- NOTE | 2024-07-04 08:18 | W.PN.GS2 ---
Today's Communication / Plan
-
-- LFD, may need to be backed down if continued nausea issues
-- Pain control: Tylenol, Tramadol
-- Stool cultures pending
-- May need IVF if poor PO intake and continued GI losses, f/u Cr and monitor UOP, defer to Hospitalist
-- DVT: Lovenox
-- Tentative plan for LOYD removal tomorrow if doing well and outputs benign
Assessment / Plan
-
73 yo female with a h/o CAD, [place] with stents, CHF, PPM, and COPD who presented for abdominal pain with workup demonstrating cholelithiasis without cholecystitis and choledocholithiasis.
PPD#3 ERCP for removal of stones/sphincterotomy with biopsies taken of semi-pedunculated subepithelial nodule in the duodenum (path pending)
POD#1 s/p laparoscopic cholecystectomy with IOC
AFVSS
Labs reviewed, WBC normal, CMP pending
Issues with diarrhea, nausea, vomiting. Diarrhea issues present preoperatively and attributed to antibiotics, stool cultures pending, antibiotics since stopped. Switch to low-fat diet. If continued issues with nausea and vomiting throughout the
morning with back down to NPO. Less likely ileus with passage of flatus and stool. Possibly related to anesthesia. Possible crampy pain from diarrhea, infectious work-up on going.
-- LFD, may need to be backed down if continued nausea issues
-- Pain control: Tylenol, Tramadol
-- Stool cultures pending
-- May need IVF if poor PO intake and continued GI losses, f/u Cr and monitor UOP, defer to Hospitalist
-- Abx: none further needed from surgery standpoint
-- GI: PPI
-- DVT: Lovenox
-- Tentative plan for LOYD removal tomorrow if doing well and outputs benign
Subjective Data
-
Date of Service: July 04, 2024
Complains of diarrhea. Issues with nausea and vomiting overnight, denies any currently. No fevers. Denies any worsening abdominal pain.
Objective Data
-
Intake and Output
07/03/24 07/04/24 07/05/24
06:59 06:59 06:59
Intake Total 1780 / 1780 1010 / 1010
Output Total 560 / 560
Balance 1780 / 1780 450 / 450
Intake:
Oral fluids 1680 / 1680 960 / 960
IV fluids (Total) 50 / 50
Normosol 50 / 50
IV piggybacks 100 / 100
Output:
Liquid stool amount 500 / 500
Rectum 500 / 500
Drain Output (Total) 60 / 60
Abdomen 0 / 0
Right Upper [place] 60 / 60
Other:
Number of approximated MODERATE 4 1
amounts of urine
Number of approximated LARGE 2
amounts of urine
How many times incontinent 2
MODERATE amount urine
Vital Signs
Temp Pulse Resp BP Pulse Ox
99.5 F 67 18 142/63 98
07/04/24 03:44 07/03/24 23:51 07/03/24 23:51 07/03/24 23:51 07/03/24 23:51
Lab Results
07/04/24 07:21
Calcium 9.2 mg/dl (8.4-10.2) 07/03/24 06:59
Total Bilirubin 0.7 mg/dl (0.2-1.3) 07/03/24 06:59
AST 30 U/L (14-36) 07/03/24 06:59
ALT 49 U/L (0-35) H 07/03/24 06:59
Alkaline Phosphatase 155 U/L (38-126) H 07/03/24 06:59
Total Protein 6.7 g/dl (6.3-8.2) 07/03/24 06:59
Albumin 4.0 g/dl (3.5-5.0) 07/03/24 06:59
Physical Exam
-
Gen: NAD
Abd: oft, NT/ND/obese, non-peritoneal, incisions c/d/i - no erythema, ecchymosis or drainage, LOYD serosang, non-bilious
Patient has a prince catheter: No
Patient has a central line: No
[2024-07-04 08:36] LABS: ALT (SGPT) 48 U/L (0-35); AST (SGOT) 48 U/L (14-36); Albumin 4.1 g/dl (3.5-5.0); Alkaline Phosphatase 125 U/L (38-126); Blood Urea Nitrogen 26 mg/dl (7-17); Calcium 9.2 mg/dl (8.4-10.2); Carbon Dioxide 23 mmol/L (22-30); Chloride 98 mmol/L (98-107); Estimated Creatinine Clearance 57 ml/min; Glucose 131 mg/dl (70-99); Potassium 3.6 mmol/L (3.5-5.1); Sodium 136 mmol/L (135-145); Total Bilirubin 0.9 mg/dl (0.2-1.3); Total Protein 6.7 g/dl (6.3-8.2); eGFR 53.06
[2024-07-04] MEDS: VESICARE 5 MG PO (09:26)
[2024-07-04] MEDS: PROTONIX IV 40 MG IV (09:26)
[2024-07-04] MEDS: NSS (PRESERVATIVE FREE) 10 ML IV (09:26)
[2024-07-04] MEDS: LEXAPRO 10 MG PO (09:26)
[2024-07-04] MEDS: HEPARIN SC (09:28)
[2024-07-04] MEDS: LASIX PO (09:39)
--- NOTE | 2024-07-04 11:20 | W.PN.HOSP.TC ---
Today's Communication/Plan
-
LFD to tolerance
enteric precautions and supportive care for Norovirus.
1 bag IVF today; hold Lasix
Assessment / Plan
Assessment / Plan
US abdomen
Liver is unremarkable in echotexture without evidence of focal lesion. The portal and hepatic vessels appear grossly patent.
No intra- or extrahepatic biliary ductal dilatation with the visualized portion of the common duct measuring 6 mm. No gallstones, gallbladder wall thickening, pericholecystic fluid or sonographic Vázquez's sign.
Limited visualization of the tail of the pancreas, with the visualized portion of the pancreas appearing heterogeneous, nonspecific. Spleen measures 10.2 cm in length, which is not enlarged. No free fluid in the upper abdomen.
Right kidney measures 9.0 cm, and the left kidney measures 9.4 cm in length. No hydronephrosis.
Visualized portions of the abdominal aorta and inferior vena cava appear unremarkable.
MRI abdomen
Gallbladder is contracted and contains multiple small gallstones. No evidence for gallbladder wall thickening or pericholecystic edema, with no findings to suggest acute cholecystitis by MRI.
Mild central intrahepatic bile duct dilation. Common hepatic duct and common bile duct measures up to 7.5 mm, in the upper range of normal.
There are however several common bile duct calculi in the inferior aspect of the common bile duct.
1 cm cyst at the posterior margin of the right lobe liver.
Multiple top normal slightly enlarged lymph nodes in the periportal and portacaval region. These are nonspecific, but statistically these are likely reactive inflammatory lymph nodes, fairly commonly seen in this region. There are small periaortic
lymph nodes, not enlarged by size criteria.
Colonic diverticula seen involving the distal descending colon and the sigmoid colon.
Assessment:
Acute transaminitis/hepatitis
- MRI: Mild central intrahepatic bile duct dilation. Common hepatic duct and common bile duct measures up to 7.5 mm, in the upper range of normal. several common bile duct calculi in the inferior aspect of the common bile duct.
- GI signed off; s/p ERCP 06/30/24
- GS following; s/p lap traci 07/03/24 with indwelling drain
- s/p IV Zosyn 7 day course
- LFTs improving
- Diet: LFD
Acute norovirus infection
- supportive care with prn Zofran
- enteric precautions
- diet as tolerated
- 1 bag IVF today
Duodenal lesion
- Incidentally found on EGD, biopsy done pathology report pending. OP GI f/u
Elevated troponin - nonischemic myocardial injury related
h/o of CAD and RCA stenting
- Troponin 0.022 > 0.049 > 0.051 > 0.03
CKD stage 3b
Chronic diastolic HF
- No signs of exacerbation
- hold Lasix 40mg daily with norovirus
Chronic hypotension
- continue midodrine with holding parameter.
Hypokalemia
- Replace as needed
Hyponatremia - resolved
DVT ppx: SC Heparin
Code: Full
Anticipated Discharge: 24 - 48 hours
Subjective/Interval History
-
Date of Service: July 04, 2024
multiple episodes of nausea/vomiting overnight and diagnosed this AM with Norovirus
Objective Data
-
Labs:
Laboratory Results
07/04/24
07:21
WBC 9.1
Hgb 11.5 L
Hct 34.9 L
Plt Count 195
Sodium 136
Potassium 3.6
Chloride 98
Carbon Dioxide 23
BUN 26 H
Creatinine 1.1 H
Glucose 131 H
Calcium 9.2
Total Bilirubin 0.9
AST 48 H
ALT 48 H
Alkaline Phosphatase 125
Vital Signs:
Vital Signs
Temp Pulse Resp BP Pulse Ox
99.2 F 62 20 115/54 95
07/04/24 07:40 07/04/24 09:15 07/04/24 07:40 07/04/24 09:15 07/04/24 07:40
I&O
07/03/24 07/04/24 07/05/24
06:59 06:59 06:59
Intake Total 0 / 1779 1010 / 1010
Output Total 560 / 560
Balance 0 1779 450 / 450
Physical Exam
-
General: No Apparent Distress
HEENT: Normocephalic and Atraumatic
Respiratory: Negative Wheezes
Cardiac: Regular Rhythm and S1/S2
GI: Soft and Nontender
Genito-urinary: No Costovertebral Tender
Musculoskeletal: No Edema
Neuro: AO x 3
Hematologic / Lymphatic: No Lymphadenopathy
Psych: Calm
Data Reviewed
-
Total Time Spent with Patient (in minutes): 41
Labs: Labs Reviewed by me
[2024-07-04] MEDS: 0.45%NACL 1000 IV (11:49)
[2024-07-04] MEDS: ULTRAM 50 MG PO ×2 (14:31→21:45)
[2024-07-04 15:37] VITALS: BP 120/63
[2024-07-04] MEDS: LOVENOX 40 MG SC (18:15)
[2024-07-04] MEDS: MELATONIN 5 MG PO (21:45)
[2024-07-04] MEDS: REQUIP 3 MG PO (21:48)
[2024-07-04] MEDS: ABILIFY 2 MG PO (21:48)
[2024-07-04] MEDS: REMERON 7.5 MG PO (21:48)
[2024-07-04 23:44] VITALS: BP 123/58
[2024-07-05 06:00] VITALS: BMI 34.0
[2024-07-05 07:04] VITALS: BP 142/68
[2024-07-05 07:42] LABS: Hematocrit 32.4 % (37.0-47.0); Hemoglobin 10.5 g/dL (12.0-16.0); Mean Corp Hgb Conc. 32.4 g/dL (33.0-37.0); Mean Corpuscular Hgb 31.5 pg (27.0-31.0); Mean Corpuscular Volume 97.3 fL (81.0-99.0); Mean Platelet Volume 11.5 fL (7.4-10.4); Platelet Count 172 10^3/uL (130-400); Red Blood Cell Count 3.33 10^6/uL (4.20-5.40); Red Cell Dist. Width 14.2 % (11.5-14.5); White Blood Cell Count 5.4 10^3/uL (4.8-10.8)
[2024-07-05] MEDS: PROTONIX IV 40 MG IV (07:55)
[2024-07-05] MEDS: NSS (PRESERVATIVE FREE) 10 ML IV (07:55)
[2024-07-05] MEDS: LEXAPRO 10 MG PO (07:56)
[2024-07-05] MEDS: VESICARE 5 MG PO (07:56)
[2024-07-05 08:26] LABS: ALT (SGPT) 42 U/L (0-35); AST (SGOT) 42 U/L (14-36); Albumin 3.3 g/dl (3.5-5.0); Alkaline Phosphatase 112 U/L (38-126); Blood Urea Nitrogen 16 mg/dl (7-17); Calcium 8.7 mg/dl (8.4-10.2); Carbon Dioxide 25 mmol/L (22-30); Chloride 101 mmol/L (98-107); Estimated Creatinine Clearance 69 ml/min; Glucose 99 mg/dl (70-99); Potassium 3.4 mmol/L (3.5-5.1); Sodium 134 mmol/L (135-145); Total Bilirubin 0.7 mg/dl (0.2-1.3); Total Protein 5.8 g/dl (6.3-8.2); eGFR > 60.00
--- NOTE | 2024-07-05 08:49 | W.PN.HOSP.TC ---
Addendum entered and electronically signed by Miracle Lopez MD 07/05/24 08:53:
hypokalemia from diarrhea - replete
Original Note:
Today's Communication/Plan
-
GS evaluation for drain removal
monitor diet tolerance and diarrhea
DC in 24 hours
Assessment / Plan
Assessment / Plan
US abdomen
Liver is unremarkable in echotexture without evidence of focal lesion. The portal and hepatic vessels appear grossly patent.
No intra- or extrahepatic biliary ductal dilatation with the visualized portion of the common duct measuring 6 mm. No gallstones, gallbladder wall thickening, pericholecystic fluid or sonographic Vázquez's sign.
Limited visualization of the tail of the pancreas, with the visualized portion of the pancreas appearing heterogeneous, nonspecific. Spleen measures 10.2 cm in length, which is not enlarged. No free fluid in the upper abdomen.
Right kidney measures 9.0 cm, and the left kidney measures 9.4 cm in length. No hydronephrosis.
Visualized portions of the abdominal aorta and inferior vena cava appear unremarkable.
MRI abdomen
Gallbladder is contracted and contains multiple small gallstones. No evidence for gallbladder wall thickening or pericholecystic edema, with no findings to suggest acute cholecystitis by MRI.
Mild central intrahepatic bile duct dilation. Common hepatic duct and common bile duct measures up to 7.5 mm, in the upper range of normal.
There are however several common bile duct calculi in the inferior aspect of the common bile duct.
1 cm cyst at the posterior margin of the right lobe liver.
Multiple top normal slightly enlarged lymph nodes in the periportal and portacaval region. These are nonspecific, but statistically these are likely reactive inflammatory lymph nodes, fairly commonly seen in this region. There are small periaortic
lymph nodes, not enlarged by size criteria.
Colonic diverticula seen involving the distal descending colon and the sigmoid colon.
Assessment:
Acute transaminitis/hepatitis
- MRI: Mild central intrahepatic bile duct dilation. Common hepatic duct and common bile duct measures up to 7.5 mm, in the upper range of normal. several common bile duct calculi in the inferior aspect of the common bile duct.
- GI signed off; s/p ERCP 06/30/24
- GS following; s/p lap traci 07/03/24 with indwelling drain. Drain to be evaluated for possible removal prior to DC
- s/p IV Zosyn 7 day course
- LFTs improving
- Diet: LFD and tolerating (no n/v)
Acute norovirus infection
- supportive care with prn Zofran
- enteric precautions
- diet as tolerated
- s/p IVF x 1 bag
Duodenal lesion
- Incidentally found on EGD, biopsy done pathology benign. OP GI f/u for EUS.
Elevated troponin - nonischemic myocardial injury related
h/o of CAD and RCA stenting
- Troponin 0.022 > 0.049 > 0.051 > 0.03
CKD stage 3b
Chronic diastolic HF
- No signs of exacerbation
- hold Lasix 40mg with norovirus; resume in 24-48 hours
Chronic hypotension
- continue midodrine with holding parameter.
Hypokalemia
- Replace as needed
Hyponatremia - resolved
DVT ppx: SC Heparin
Code: Full
Anticipated Discharge: Within 24 hours
Subjective/Interval History
-
Date of Service: July 05, 2024
reports some diarrhea overnight
nervous about going home today, managing her GI symptoms without help
Objective Data
-
Labs:
Laboratory Results
07/05/24
07:08
WBC 5.4
Hgb 10.5 L
Hct 32.4 L
Plt Count 172
Sodium 134 L
Potassium 3.4 L
Chloride 101
Carbon Dioxide 25
BUN 16
Creatinine 0.9
Glucose 99
Calcium 8.7
Total Bilirubin 0.7
AST 42 H
ALT 42 H
Alkaline Phosphatase 112
Vital Signs:
Vital Signs
Temp Pulse Resp BP Pulse Ox
99.0 F 90 18 142/68 92
07/05/24 06:00 07/05/24 07:56 07/04/24 23:44 07/05/24 07:56 07/04/24 23:44
I&O
07/04/24 07/05/24 07/06/24
06:59 06:59 06:59
Intake Total 1010 / 1010 565 / 565
Output Total 560 / 560 1023 / 1023
Balance 450 / 450 -458 / -458
Physical Exam
-
General: No Apparent Distress
HEENT: Normocephalic and Atraumatic
Respiratory: Negative Wheezes
Cardiac: Regular Rhythm and S1/S2
GI: Soft and Tender (mildy, from cramping)
Musculoskeletal: No Edema
Neuro: AO x 3
Hematologic / Lymphatic: No Lymphadenopathy
Psych: Calm
Data Reviewed
-
Total Time Spent with Patient (in minutes): 42
Labs: Labs Reviewed by me
[2024-07-05] MEDS: KCL 40 MEQ PO (08:56)
--- NOTE | 2024-07-05 09:25 | CM ---
Chart reviewed for d/c planning. Pt currently w/ norovirus
Per hospitalist, debbi d/c tomorrow. PT currently recommending HH
CM spoke w/ Denise/KALEN for [facility] program- ([phone]) to update. Per Denise program is able to set up VN for pt and will be able to deliver a new walker to her apartment at d/c. Denise stated she will update her team.
Plan: Home w/ HH and new walker provided by [facility]
--- NOTE | 2024-07-05 09:58 | W.PN.GS2 ---
Today's Communication / Plan
-
Drain dc'ed
Pls call with ?s
Assessment / Plan
-
73 yo female with a h/o CAD, LA with stents, CHF, PPM, and COPD who presented for abdominal pain with workup demonstrating cholelithiasis without cholecystitis and choledocholithiasis.
PPD#4 ERCP for removal of stones/sphincterotomy with biopsies taken of semi-pedunculated subepithelial nodule in the duodenum (path pending)
POD#2 s/p laparoscopic cholecystectomy with IOC
AFVSS
Labs reviewed, WBC normal, LFTs improving
Issues with diarrhea, nausea, vomiting. Diarrhea issues present preoperatively and attributed to antibiotics, stool cultures pending, antibiotics since stopped. Switch to low-fat diet.
Stool studies + Norovirus
-- LFD
-- Pain control: Tylenol, Tramadol
-- Abx: none further needed from surgery standpoint
-- GI: PPI
-- DVT: Lovenox
-- Dispo planning
-- GS will s/o pls call with ?s
Subjective Data
-
Date of Service: July 05, 2024
AFVSS, pain well controlled, wilber PO, concerned about going home where she lives alone
Objective Data
-
Intake and Output
07/04/24 07/05/24 07/06/24
06:59 06:59 06:59
Intake Total 1010 / 1010 565 / 565
Output Total 560 / 560 1023 / 1023
Balance 450 / 450 -458 / -458
Intake:
Oral fluids 960 / 960 240 / 240
IV fluids (Total) 50 / 50 325 / 325
Normosol 50 / 50
Output:
Liquid stool amount 500 / 500
Rectum 500 / 500
Drain Output (Total) 60 / 60 23 / 23
Abdomen 0 / 0
Right Upper [place] 60 / 60
Urine, Voided 1000 / 1000
Other:
Number of approximated MODERATE 1
amounts of urine
Number of approximated LARGE 2
amounts of urine
Number of unmeasured liquid
stools
Rectum 3
Vital Signs
Temp Pulse Resp BP Pulse Ox
97.8 F 90 18 142/68 97
07/05/24 07:04 07/05/24 07:56 07/05/24 07:04 07/05/24 07:56 07/05/24 07:04
Lab Results
07/05/24 07:08
07/05/24 07:08
Calcium 8.7 mg/dl (8.4-10.2) 07/05/24 07:08
Total Bilirubin 0.7 mg/dl (0.2-1.3) 07/05/24 07:08
AST 42 U/L (14-36) H 07/05/24 07:08
ALT 42 U/L (0-35) H 07/05/24 07:08
Alkaline Phosphatase 112 U/L (38-126) 07/05/24 07:08
Total Protein 5.8 g/dl (6.3-8.2) L 07/05/24 07:08
Albumin 3.3 g/dl (3.5-5.0) L 07/05/24 07:08
Physical Exam
-
Gen: NAD
Abd: soft, approp ttp, incisions cdi with glue, drain ss (removed at bedside today)
Patient has a prince catheter: No
Patient has a central line: No
[2024-07-05 15:04] VITALS: BP 140/72
[2024-07-05] MEDS: LOVENOX 40 MG SC (17:31)
[2024-07-05] MEDS: ABILIFY 2 MG PO (20:49)
[2024-07-05] MEDS: REMERON 7.5 MG PO (20:49)
[2024-07-05] MEDS: REQUIP 3 MG PO (20:49)
[2024-07-05] MEDS: MELATONIN 5 MG PO (21:13)
[2024-07-05 23:30] VITALS: BP 129/76
[2024-07-06 06:00] VITALS: BMI 33.9
[2024-07-06 07:25] VITALS: BP 110/70
[2024-07-06 08:16] LABS: Hemoglobin 11.7 g/dL (12.0-16.0); Mean Corp Hgb Conc. 31.6 g/dL (33.0-37.0); Mean Corpuscular Hgb 31.2 pg (27.0-31.0); Mean Corpuscular Volume 98.7 fL (81.0-99.0); Mean Platelet Volume 11.3 fL (7.4-10.4); Platelet Count 199 10^3/uL (130-400); Red Blood Cell Count 3.75 10^6/uL (4.20-5.40); Red Cell Dist. Width 13.8 % (11.5-14.5); White Blood Cell Count 5.6 10^3/uL (4.8-10.8)
[2024-07-06] MEDS: LEXAPRO 10 MG PO (08:43)
[2024-07-06] MEDS: VESICARE 5 MG PO (08:43)
[2024-07-06] MEDS: NSS (PRESERVATIVE FREE) 10 ML IV (08:44)
[2024-07-06] MEDS: PROTONIX IV 40 MG IV (08:44)
[2024-07-06 08:50] LABS: ALT (SGPT) 35 U/L (0-35); AST (SGOT) 31 U/L (14-36); Albumin 3.6 g/dl (3.5-5.0); Alkaline Phosphatase 113 U/L (38-126); Blood Urea Nitrogen 12 mg/dl (7-17); Calcium 8.9 mg/dl (8.4-10.2); Carbon Dioxide 27 mmol/L (22-30); Chloride 104 mmol/L (98-107); Estimated Creatinine Clearance 69 ml/min; Glucose 104 mg/dl (70-99); Sodium 140 mmol/L (135-145); Total Bilirubin 0.7 mg/dl (0.2-1.3); Total Protein 6.1 g/dl (6.3-8.2); eGFR > 60.00
--- NOTE | 2024-07-06 09:01 | W.PN.HOSP.TC ---
Today's Communication/Plan
-
nc home/VN
Assessment / Plan
Assessment / Plan
US abdomen
Liver is unremarkable in echotexture without evidence of focal lesion. The portal and hepatic vessels appear grossly patent.
No intra- or extrahepatic biliary ductal dilatation with the visualized portion of the common duct measuring 6 mm. No gallstones, gallbladder wall thickening, pericholecystic fluid or sonographic Vázquez's sign.
Limited visualization of the tail of the pancreas, with the visualized portion of the pancreas appearing heterogeneous, nonspecific. Spleen measures 10.2 cm in length, which is not enlarged. No free fluid in the upper abdomen.
Right kidney measures 9.0 cm, and the left kidney measures 9.4 cm in length. No hydronephrosis.
Visualized portions of the abdominal aorta and inferior vena cava appear unremarkable.
MRI abdomen
Gallbladder is contracted and contains multiple small gallstones. No evidence for gallbladder wall thickening or pericholecystic edema, with no findings to suggest acute cholecystitis by MRI.
Mild central intrahepatic bile duct dilation. Common hepatic duct and common bile duct measures up to 7.5 mm, in the upper range of normal.
There are however several common bile duct calculi in the inferior aspect of the common bile duct.
1 cm cyst at the posterior margin of the right lobe liver.
Multiple top normal slightly enlarged lymph nodes in the periportal and portacaval region. These are nonspecific, but statistically these are likely reactive inflammatory lymph nodes, fairly commonly seen in this region. There are small periaortic
lymph nodes, not enlarged by size criteria.
Colonic diverticula seen involving the distal descending colon and the sigmoid colon.
Assessment:
Acute transaminitis/hepatitis
- MRI: Mild central intrahepatic bile duct dilation. Common hepatic duct and common bile duct measures up to 7.5 mm, in the upper range of normal. several common bile duct calculi in the inferior aspect of the common bile duct.
- GI signed off; s/p ERCP 06/30/24
- GS following; s/p lap traci 07/03/24 with indwelling drain. Drain to be evaluated for possible removal prior to DC
- s/p IV Zosyn 7 day course
- LFTs improving
- Diet: LFD and tolerating (no n/v)
Acute norovirus infection
- supportive care with prn Zofran
- enteric precautions
- diet as tolerated
- s/p IVF x 1 bag
- stools for formed and no nausea/vomiting
- precautions x 72 hours further at discharge
Duodenal lesion
- Incidentally found on EGD, biopsy done pathology benign. OP GI f/u for EUS.
Elevated troponin - nonischemic myocardial injury related
h/o of CAD and RCA stenting
- Troponin 0.022 > 0.049 > 0.051 > 0.03
CKD stage 3b
Chronic diastolic HF
- No signs of exacerbation
- resume Lasix 40mg at discharge
Chronic hypotension
- continue midodrine with holding parameter.
Hypokalemia
- Replace as needed
Hyponatremia - resolved
DVT ppx: SC Heparin
Code: Full
More than 30 minutes spent in discharge including
Final examination of the patient
Summarizing hospital stay
Instructions for continuing care to all relevant caregivers
Preparation of discharge records, prescriptions, and referral forms
Total time spent (in minutes):41
Anticipated Discharge: Today
Subjective/Interval History
-
Date of Service: July 06, 2024
denies any new complaints at present
latest BM was semi-formed
Objective Data
-
Labs:
Laboratory Results
07/06/24
07:38
WBC 5.6
Hgb 11.7 L
Hct 37.0
Plt Count 199
Sodium 140
Potassium 4.0
Chloride 104
Carbon Dioxide 27
BUN 12
Creatinine 0.9
Glucose 104 H
Calcium 8.9
Total Bilirubin 0.7
AST 31
ALT 35
Alkaline Phosphatase 113
Vital Signs:
Vital Signs
Temp Pulse Resp BP Pulse Ox
97.8 F 101 20 110/70 97
07/06/24 07:25 07/06/24 07:25 07/06/24 07:25 07/06/24 08:43 07/06/24 07:25
I&O
07/05/24 07/06/24 07/07/24
06:59 06:59 06:59
Intake Total 565 / 565 720 / 720
Output Total 1023 / 1023
Balance -458 / -458 720 / 720
Physical Exam
-
General: No Apparent Distress
HEENT: Normocephalic and Atraumatic
Respiratory: Negative Wheezes
Cardiac: Regular Rhythm and S1/S2
GI: Soft and Nontender
Musculoskeletal: No Edema
Neuro: AO x 3
Hematologic / Lymphatic: No Lymphadenopathy
Psych: Calm
Data Reviewed
-
Total Time Spent with Patient (in minutes): 42
Labs: Labs Reviewed by me
--- NOTE | 2024-07-06 09:14 | W.DS.TRANS ---
DC Summary - Intelligence Group Supervisor
-
Discharge Instructions:
Sleep Apnea Risk Low
Discharge Diagnosis/Procedures Choledocholithiasis with ERCP for stone removal
06/30 and laparoscopic cholecystectomy 07/03.
Norovirus infection
Diet Low Fat
Activity No strenuous activity
Bathing Restrictions OK to Shower
Other Services VN,PT,OT
Instructions:
Stand-Alone Forms:
Changes to Home Medications: No
Discharge Medications:
DC Medications w/original date entered in Contactually
magnesium oxide 400 mg PO HS Supplement 09/07/21
acetaminophen 500 mg tablet 1,000 mg PO BID Pain 01/15/22
midodrine 5 mg tablet 5 mg PO BID Blood pressure 01/15/22
mirtazapine 7.5 mg tablet 7.5 mg PO HS Depression 01/15/22
solifenacin 5 mg tablet (Vesicare) 5 mg PO DAILY Urinary issue 10/21/22
turmeric 400 mg capsule 400 mg PO DAILY Supplement 10/21/22
melatonin 10 mg tablet 10 mg PO HS Sleep 09/20/23
potassium gluconate 550 mg (90 mg) tablet 550 mg PO DAILY Supplement ##0 09/20/23
ropinirole 3 mg tablet 3 mg PO HS Neurological Condition 09/20/23
rosuvastatin 20 mg tablet 20 mg PO HS High Cholesterol 09/20/23
aripiprazole 2 mg tablet 2 mg PO HS Mental Health/Anxiety #30 tabs 09/21/23
aspirin 81 mg tablet,delayed release 81 mg PO DAILY Blood Clot Prevention/Tx #30 tabs 09/21/23
escitalopram oxalate 10 mg tablet 10 mg PO DAILY Mental Health #30 tabs 09/21/23
furosemide 40 mg tablet 40 mg PO BID Fluid retention/Swelling #30 tabs 09/21/23
semaglutide (weight loss) 2.4 mg/0.75 mL subcutaneous pen injector (Wegovy) 2.4 mg SC TU 06/27/24
Home Medication Changes
Pending Results: No
Total time spent discharging patient (in min): 41
--- NOTE | 2024-07-06 10:00 | CM ---
Addendum entered by Siri Leiva 07/06/24 10:26:
Fax D/C instructions to [phone]
Original Note:
CM spoke w/ KALEN Walker w/ [facility] program regarding pt's d/c today. Informed hospitalist has placed d/c and pt is stable. CM discussed pt's concerns of needing assistance w/ light housekeeping in her apartment since she has been in the hospital.
Per Denise, program can assist her w/ this.
Per Denise, program is able to transport pt home and will have an estimated time arrival in the next hour and a half. Will have to provide the steam train driver w/ the information.
CM updated hospitalist and reverse unit operator fisherman on transport
Plan: Home w/ VN and other supports arranged by [facility] program.
[2024-07-06 11:54] VITALS: BP 161/87
== END 2024-07-06 11:55 | disposition home health service (06) | DRG 417 ==
LOC: 4 EAST ACU 08:47
PROVIDERS: Nurse Practitioner Adult Health; Radiology Diagnostic Radiology; Registered Nurse; Student in an Organized Health Care Education/Training Program; Surgery; ADMITTING PHYSICIAN Hospitalist; ATTENDING PHYSICIAN Internal Medicine; CONSULT PHYSICIAN Internal Medicine Gastroenterology; EMERGENCY PHYSICIAN Student in an Organized Health Care Education/Training Program; OTHER PHYSICIAN Surgery
PROC: 0DB98ZX Excision of Duodenum, Via Natural or Artificial Opening Endoscopic, Diagnostic (ICD-10-PCS; 2024-06-30)
PROC: 0FC98ZZ Extirpation of Matter from Common Bile Duct, Via Natural or Artificial Opening Endoscopic (ICD-10-PCS; 2024-06-30)
PROC: BF101ZZ Fluoroscopy of Bile Ducts using Low Osmolar Contrast (ICD-10-PCS; 2024-07-03)
PROC: 0FB44ZZ Excision of Gallbladder, Percutaneous Endoscopic Approach (ICD-10-PCS; 2024-07-03)
DX: K80.65 Calculus of gallbladder and bile duct with chronic cholecystitis with obstruction (principal); K72.00 Acute and subacute hepatic failure without coma; A08.11 Acute gastroenteropathy due to Norwalk agent; E87.1 Hypo-osmolality and hyponatremia; I13.0 Hypertensive heart and chronic kidney disease with heart failure and stage 1 through stage 4 chronic kidney disease, or unspecified chronic kidney disease; I50.32 Chronic diastolic (congestive) heart failure; I5A Non-ischemic myocardial injury (non-traumatic); I25.10 Atherosclerotic heart disease of native coronary artery without angina pectoris; N18.32 Chronic kidney disease, stage 3b; J44.9 Chronic obstructive pulmonary disease, unspecified; E66.01 Morbid (severe) obesity due to excess calories; I25.2 Old myocardial infarction; I95.89 Other hypotension; E87.6 Hypokalemia; E78.00 Pure hypercholesterolemia, unspecified; F17.290 Nicotine dependence, other tobacco product, uncomplicated; F32.A Depression, unspecified; F41.9 Anxiety disorder, unspecified; G62.9 Polyneuropathy, unspecified; K31.89 Other diseases of stomach and duodenum; Z68.35 Body mass index [BMI] 35.0-35.9, adult; Z95.5 Presence of coronary angioplasty implant and graft; Z95.0 Presence of cardiac pacemaker; Z96.653 Presence of artificial knee joint, bilateral; Z79.82 Long term (current) use of aspirin; Z79.85 Long-term (current) use of injectable non-insulin antidiabetic drugs; Z79.899 Other long term (current) drug therapy; Z11.52 Encounter for screening for COVID-19
CPT/HCPCS: 88304; 88305; 71046; 74183; 74300; 74330; 76000; 76700; 80053; 83605; 83690; 83880; 84484; 85025; 85027; 85610; 86308; 87040; 87324; 87449; 87502; 87798; 87811; 93005; 97116; 97162; 97166; 97530; 97535; 99285; A9575; C1769; C1776